=== PATIENT | female | born 1940 | race Caucasian/White ===

== ENCOUNTER 2017-02-02 21:11 | Emergency (ER) | payer MEDICARE, OTHER ==
[2017-02-02] MEDS ORDERED: BABY ASPIRIN 81 MG CHEW PO ONE (21:26)
[2017-02-02] MEDS ORDERED: Nitrostat 0.4 MG (ED) SL ONE ×2 (21:26→21:37)
[2017-02-02] MEDS ORDERED: Sodium Chloride 0.9% 1000 ML 1,000 ML IV SCH (21:30)
--- NOTE | 2017-02-02 21:33 | ERPHSYRPT ---
- History of Present Illness Time Seen by Provider: 02/02/17 21:18 Historian: patient Exam Limitations: no limitations Physician History: SINCE NOON TODAY PT HAS HAD NON-RADIATING MID ANTERIOR CHEST PRESSURE/TIGHTNESS WHICH WORSENED ABOUT 3 HOURS AGO WITH SHORTNESS OF AIR, DIAPHORESIS AND IMPENDING FAINT FOR 5 MINUTES. PT HAS ALSO HAD AN INTERMITTENT FRONTAL HEADACHE TODAY. PT DENIES NAUSEA, VOMITING, RASH. Aspirin Treatment Today: 81 mg x 4, provided by ED Allergies/Adverse Reactions: cefotetan [From Cefotan] Allergy (Verified 02/02/17 22:39) Home Medications: Aspirin 81 gm Chew [Baby Aspirin 81 mg Chew] 81 mg PO DAILY 02/02/17 [ History] Glyburide/Metformin HCl [Glucovance 5-500 mg Tablet] 1 each PO TID 02/02/17 [ History] Metoprolol Succinate 50 mg [Toprol Xl 50 MG] 50 mg PO HS 02/02/17 [History ] - Review of Systems Respiratory: Dyspnea Cardiac: Other (CHEST PRESSURE/TIGHTNESS TODAY) Abdominal/Gastrointestinal: No Nausea, No Vomiting Neurological: Headache, Other (IMPENDING FAINT) Endocrine: Excessive Sweating All Other Systems: Reviewed and Negative - Physical Exam General Appearance: alert Eye Exam: PERRL/EOMI Ears, Nose, Throat Exam: TMs normal, pharynx normal, moist mucous membranes Neck Exam: normal inspection Respiratory Exam: lungs clear Cardiovascular Exam: normal heart sounds Gastrointestinal/Abdomen Exam: soft, normal bowel sounds Back Exam: normal range of motion Extremity Exam: normal inspection, No pedal edema Neurologic Exam: alert, cooperative Skin Exam: warm, dry - Course Nursing assessment & vital signs reviewed: Yes EKG Interpreted by Me: RATE (88), Sinus Rhythm, NORMAL AXIS, NORMAL INTERVALS, Other (IRBBB) - Radiology Exams Chest X-ray Interpretation: Interpreted by me, No Pneumonia - CT Exams Abdomen/Pelvis CT Interpretation: Tele-radiologist Report (NO ACUTE FINDINGS) Ordered Tests: Active Orders 24 hr Category Date Time Status Improvement Lead STAT Care 02/02/17 21:26 Active EKG-ER Only STAT Care 02/02/17 21:26 Active EKG-ER Only STAT Care 02/02/17 23:57 Active IV Insertion STAT Care 02/02/17 21:26 Active Oxygen-ED Only NASAL CANNULA 2 lpm Care 02/02/17 21:26 Active Pulse Oximetry (ED) STAT Care 02/02/17 21:26 Active ABDOMEN AND PELVIS W/0 CONTRAS [CT] Stat Exams 02/02/17 22:19 Taken CHEST 1 VIEW (PORTABLE) Stat Exams 02/02/17 21:27 Taken AMYLASE Stat Lab 02/02/17 21:33 Completed BMP Stat Lab 02/02/17 23:58 Completed CBC W DIFF Stat Lab 02/02/17 21:33 Completed CMP Stat Lab 02/02/17 21:33 Completed LIPASE Stat Lab 02/02/17 21:33 Completed MAG [MAGNESIUM] Stat Lab 02/03/17 00:15 Completed MAGNESIUM Stat Lab 02/02/17 21:33 Completed NT PRO BNP Stat Lab 02/02/17 21:33 Completed PROTIME WITH INR Stat Lab 02/02/17 21:33 Completed PTT Stat Lab 02/02/17 21:33 Completed TROPONIN Q3H Lab 02/02/17 21:33 Completed TROPONIN Q3H Lab 02/03/17 00:15 Completed TROPONIN Q3H Lab 02/03/17 03:30 Ordered TROPONIN Q3H Lab 02/03/17 06:30 Ordered TROPONIN Q3H Lab 02/03/17 09:30 Ordered UA Stat Lab 02/02/17 21:26 Ordered Medication Summary Generic Name Dose Route Start Last Admin Trade Name Freq PRN Reason Stop Dose Admin Sodium Chloride 1,000 mls @ 100 mls/hr 02/02/17 21:30 02/02/17 21:40 Sodium Chloride 0.9% 1000 Ml IV 03/04/17 21:29 100 mls/hr .Q10H OPAL Administration Discontinued Medications Generic Name Dose Route Start Last Admin Trade Name Freq PRN Reason Stop Dose Admin Aspirin 324 mg 02/02/17 21:26 02/02/17 21:39 Baby Aspirin 81 Mg Chew PO 02/02/17 21:27 324 mg STAT ONE Administration Aspirin Confirm 02/02/17 21:37 Baby Aspirin 81 Mg Chew Administered 02/02/17 21:38 Dose 324 mg .ROUTE .STK-MED ONE Magnesium Sulfate/Dextrose 100 mls @ 200 mls/hr 02/02/17 22:18 02/02/17 22:25 Magnesium 1 Gm / 100 Ml D5w IV 02/02/17 22:47 200 mls/hr STAT ONE Administration Magnesium Sulfate/Dextrose Confirm 02/02/17 22:23 Magnesium 1 Gm / 100 Ml D5w Administered 02/02/17 22:24 Dose 100 mls @ ud IV .STK-MED ONE Nitroglycerin 0.4 mg 02/02/17 21:26 02/02/17 21:41 Nitrostat 0.4 Mg (Ed) SL 02/02/17 21:27 0.4 mg STAT ONE Administration Nitroglycerin Confirm 02/02/17 21:37 Nitrostat 0.4 Mg (Ed) Administered 02/02/17 21:38 Dose 0.4 mg SL .STK-MED ONE Lab/Rad Data: Laboratory Result Diagrams 02/02/17 21:33 02/03/17 00:15 Laboratory Results 02/03/17 02/03/17 02/03/17 Range/Units 00:15 00:15 00:15 WBC (4.0-10.5) K/mm3 RBC (4.1-5.4) M/mm3 Hgb (12.0-16.0) gm/dl Hct (35-47) % MCV (78-100) fl MCH (26-32) pg MCHC (32-36) g/dl RDW (11.5-14.0) % Plt Count (150-450) K/mm3 MPV (6-9.5) fl Gran % (36.0-66.0) % Lymphocytes % (24.0-44.0) % Monocytes % (0.0-12.0) % Eosinophils % (0.00-5.0) % Basophils % (0.0-0.4) % Basophils # (0-0.4) INR (0.8-3.0) PTT (25.3-37.0) SECONDS Sodium 140 (136-145) mEq/L Potassium 4.2 (3.5-5.1) mEq/L Chloride 104 (98-107) mEq/L Carbon Dioxide 25.5 (21-32) mEq/L Anion Gap 15.0 (5-15) MEQ/L BUN 18 (9-20) mg/dL Creatinine 1.40 H (0.55-1.30) mg/dl Estimated GFR 39 ML/MIN Glucose 201 H (70-110) MG/DL Calcium 8.2 L (8.5-10.1) mg/dL Magnesium 1.9 (1.8-2.4) mg/dL Total Bilirubin (0.2-1.0) mg/dL AST (15-37) U/L ALT (12-78) U/L Alkaline Phosphatase (46-116) U/L Troponin I < 0.017 (0.000-0.056) ng/ml NT-Pro-B Natriuret Pep (0-125) pg/ml Serum Total Protein (6.4-8.2) gm/dL Albumin (3.4-5.0) g/dL Amylase (25-115) U/L Lipase (73-393) U/L 02/02/17 02/02/17 02/02/17 Range/Units 21:33 21:33 21:33 WBC (4.0-10.5) K/mm3 RBC (4.1-5.4) M/mm3 Hgb (12.0-16.0) gm/dl Hct (35-47) % MCV (78-100) fl MCH (26-32) pg MCHC (32-36) g/dl RDW (11.5-14.0) % Plt Count (150-450) K/mm3 MPV (6-9.5) fl Gran % (36.0-66.0) % Lymphocytes % (24.0-44.0) % Monocytes % (0.0-12.0) % Eosinophils % (0.00-5.0) % Basophils % (0.0-0.4) % Basophils # (0-0.4) INR 0.98 (0.8-3.0) PTT 30.7 (25.3-37.0) SECONDS Sodium 140 (136-145) mEq/L Potassium 4.3 (3.5-5.1) mEq/L Chloride 102 (98-107) mEq/L Carbon Dioxide 24.4 (21-32) mEq/L Anion Gap 17.6 H (5-15) MEQ/L BUN 16 (9-20) mg/dL Creatinine 1.44 H (0.55-1.30) mg/dl Estimated GFR 38 ML/MIN Glucose 232 H (70-110) MG/DL Calcium 8.2 L (8.5-10.1) mg/dL Magnesium 1.4 L (1.8-2.4) mg/dL Total Bilirubin 0.3 (0.2-1.0) mg/dL AST 15 (15-37) U/L ALT 24 (12-78) U/L Alkaline Phosphatase 103 (46-116) U/L Troponin I < 0.017 (0.000-0.056) ng/ml NT-Pro-B Natriuret Pep 504 H (0-125) pg/ml Serum Total Protein 7.6 (6.4-8.2) gm/dL Albumin 3.7 (3.4-5.0) g/dL Amylase 87 (25-115) U/L Lipase 874 H (73-393) U/L 02/02/17 Range/Units 21:33 WBC 5.3 (4.0-10.5) K/mm3 RBC 4.49 (4.1-5.4) M/mm3 Hgb 11.8 L (12.0-16.0) gm/dl Hct 37.1 (35-47) % MCV 82.6 (78-100) fl MCH 26.2 (26-32) pg MCHC 31.8 L (32-36) g/dl RDW 15.2 H (11.5-14.0) % Plt Count 251 (150-450) K/mm3 MPV 9.6 H (6-9.5) fl Gran % 70.4 H (36.0-66.0) % Lymphocytes % 20.7 L (24.0-44.0) % Monocytes % 7.0 (0.0-12.0) % Eosinophils % 1.1 (0.00-5.0) % Basophils % 0.8 (0.0-0.4) % Basophils # 0.04 (0-0.4) INR (0.8-3.0) PTT (25.3-37.0) SECONDS Sodium (136-145) mEq/L Potassium (3.5-5.1) mEq/L Chloride (98-107) mEq/L Carbon Dioxide (21-32) mEq/L Anion Gap (5-15) MEQ/L BUN (9-20) mg/dL Creatinine (0.55-1.30) mg/dl Estimated GFR ML/MIN Glucose (70-110) MG/DL Calcium (8.5-10.1) mg/dL Magnesium (1.8-2.4) mg/dL Total Bilirubin (0.2-1.0) mg/dL AST (15-37) U/L ALT (12-78) U/L Alkaline Phosphatase (46-116) U/L Troponin I (0.000-0.056) ng/ml NT-Pro-B Natriuret Pep (0-125) pg/ml Serum Total Protein (6.4-8.2) gm/dL Albumin (3.4-5.0) g/dL Amylase (25-115) U/L Lipase (73-393) U/L - Departure Time of Disposition: 00:59 Departure Disposition: Home Clinical Impression: CHEST PRESSURE, HYPOMAGNESEMIA - CORRECTED IN ER, ELEVATED LIPASE Condition: Fair Critical Care Time: No Referrals: MADISON RATLIFF [Primary Care Provider] - Instructions: Chest Pain Additional Instructions: FOLLOW UP WITH PRIVATE DOCTOR LATER TODAY.
[2017-02-02 21:36] LABS: BASOPHIL % 0.8 % (0.0-0.4); Eosinophil % 1.1 % (0.00-5.0); Granulocytes % 70.4 % (36.0-66.0); Lymphocytes % 20.7 % (24.0-44.0); Mean Cell Volume 82.6 fl (78-100); Mean Platelet Volume 9.6 fl (6-9.5); Platelet Count 251 K/mm3 (150-450); Red Blood Count 4.49 M/mm3 (4.1-5.4); Red Cell Distribution Width 15.2 % (11.5-14.0); White Blood Count 5.3 K/mm3 (4.0-10.5)
[2017-02-02 21:37] LABS: Mean Corpuscular Hemoglobin 26.2 pg (26-32)
[2017-02-02] MEDS ORDERED: Sodium Chloride 0.9% 1000 ML 1,000 ML ONE (21:37)
[2017-02-02] MEDS ORDERED: BABY ASPIRIN 81 MG CHEW ONE (21:37)
[2017-02-02 21:53] LABS: INR 0.98 (0.8-3.0)
[2017-02-02 21:56] LABS: PTT 30.7 SECONDS (25.3-37.0)
[2017-02-02 22:08] LABS: ALBUMIN 3.7 g/dL (3.4-5.0); ANION GAP 17.6 MEQ/L (5-15); BILIRUBIN,TOTAL 0.3 mg/dL (0.2-1.0); Carbon Dioxide 24.4 mEq/L (21-32); MAGNESIUM 1.4 mg/dL (1.8-2.4); Potassium 4.3 mEq/L (3.5-5.1); Total Protein 7.6 gm/dL (6.4-8.2)
[2017-02-02] MEDS ORDERED: Magnesium 1 Gm / 100 Ml D5W*** 100 ML IV ONE ×2 (22:18→22:23)
[2017-02-03 00:41] LABS: Carbon Dioxide 25.5 mEq/L (21-32); Potassium 4.2 mEq/L (3.5-5.1)
[2017-02-03 00:50] VITALS: BP 168/70; PULSE 73; O2SAT 94
--- NOTE | 2017-02-03 09:35 | XRAY ---
Indication: Chest pressure. Comparison: None Portable apical lordotic chest demonstrates scattered calcific granulomas. Remaining heart and lungs normal. Bony thorax intact with mild degenerative changes. Impression: Nonacute chest with chronic features.
--- NOTE | 2017-02-03 09:41 | XRAY ---
Indication: Elevated lipase. Multiple contiguous axial images obtained through the abdomen and pelvis without contrast as ordered. Comparison: August 26, 2009. Lung bases again demonstrates bibasilar atelectasis/scarring and a few calcified granulomas. No consolidation or effusion. Heart is not enlarged. Again small hiatal hernia. Noncontrasted stomach and bowel loops appear nonobstructed with now mild diffuse scattered colonic fecal debris. There remains mild descending and sigmoid colonic diverticulosis. Normal appendix. There is been interval cholecystectomy. No free fluid/air. Spleen is enlarged today measuring 13.3 cm in greatest axial dimension. Stable uterine hypodensity probable fibroid. Remaining liver, pancreas, spleen, adrenal glands, kidneys, ureters, and bladder appear unremarkable for noncontrast exam. Minimal aortoiliac calcifications without AAA. Osseous structures intact with minimal multilevel spinal degenerative changes. Impression: 1. Stable small hiatal hernia and uterine fibroid. 2. Incidental splenomegaly and mild fecal stasis without obstruction. 3. No acute intra-abdominal/pelvic abnormalities on this noncontrast exam. Comment: Preliminary interpretation was made by [facility]. No critical discrepancy. CT DI 21.85
== END 2017-02-03 01:10 | disposition home or self-care (01) ==
LOC: ED 21:11
DX: R07.89 Other chest pain (principal); E83.42 Hypomagnesemia; R74.8 Abnormal levels of other serum enzymes; R06.02 Shortness of breath; R51 Headache; Z79.84 Long term (current) use of oral hypoglycemic drugs; Z79.899 Other long term (current) drug therapy
CPT/HCPCS: 36000; 36415; 71010; 74176; 80048; 80053; 82150; 83690; 83735; 83880; 84484; 85025; 85610; 85730; 93005; 93041; 96360; 96361; 99285; J3475; A9270-GY

== ENCOUNTER 2018-03-30 05:57 | Day surgery (SDC) | payer MEDICARE, OTHER ==
[2018-03-30] MEDS ORDERED: DIPRIVAN 200 MG/20 ML IV ONE (05:58)
[2018-03-30] MEDS ORDERED: Lactated Ringers 1,000 ML IV SCH (06:00)
[2018-03-30] MEDS ORDERED: Lactated Ringers 1,000 ML IV ONE ×2 (06:07→07:38)
--- NOTE | 2018-03-30 08:38 | OP ---
SURGERY DATE/TIME: 03/30/2018 0700 PREOPERATIVE DIAGNOSIS: History of colon cancer. POSTOPERATIVE DIAGNOSIS: Sessile polyps in the transverse and descending colon and sigmoid diverticulosis. PROCEDURE: Colonoscopy with polypectomy and tattooing of the colon. SURGEON: Dr. Ye. ANESTHESIA: Medications given by anesthesia department. HISTORY: The patient is a 77 year-old white female with history of colon cancer status post resection over ten years ago. Previous colonoscopies also have revealed colon polyps. The patient represents again at this point for re-evaluation. She was reappraised of the risks of the procedure including the risk of perforation, phlebitis, untoward reaction to medication, bleeding and missed lesions. The patient verbalized her understanding and desired to have the procedure performed. DESCRIPTION OF PROCEDURE: The patient was given the medications by the anesthesia department. She had continuous pulse oximetry, ECG monitoring, intermittent blood pressure monitoring and tidal CO2 monitoring during the examination. She was placed in the left lateral decubitus position. A digital rectal examination was performed and revealed normal anal sphincter tone and no masses. The flexible Olympus pediatric colonoscope was used to intubate the rectum. A view of the colon was developed sequentially to the cecum. Upon insertion and withdrawal was noted sessile polyp measuring approximately 3 x 2 cm in size this was removed using piecemeal removal with hot polypectomy snare and retrieved for pathologic evaluation. This was noted at approximately the mid transverse colon. There was also noted a second sessile polyp at what appeared to be the splenic flexure in the descending colon this was biopsied using cold biopsy technique and tattooed for further investigation in the future of the same area in case the patient needs to have colon resection performed again. There was also noted to be sigmoid diverticulosis at the anastomosis junction from the previous colon resection and was noted to be free of any apparent lesions. The scope was removed from the patient who tolerated the procedure well and was sent back to OP recovery in good condition. The prep was noted to be fair to good.
[2018-03-30 08:41] VITALS: BP 140/65; PULSE 62; O2SAT 97
== END 2018-03-30 08:58 | disposition home or self-care (01) ==
LOC: SDC 05:57
PROVIDERS: ATTEND Family Medicine
DX: K63.5 Polyp of colon (principal); K57.30 Diverticulosis of large intestine without perforation or abscess without bleeding; Z85.038 Personal history of other malignant neoplasm of large intestine
CPT/HCPCS: 88305; 99100; J2704

== ENCOUNTER 2021-10-25 18:08 | Inpatient (IN) | payer MEDICARE, OTHER ==
--- NOTE | 2021-10-25 18:57 | ERPHSYRPT ---
- History of Present Illness Historian: patient Exam Limitations: no limitations Patient Subjective Stated Complaint: " abdominal pain x1 week with nausea" Triage Nursing Assessment: Pt ambulated to bed 5 with steady gait noted. A & OX3, answers questions appropriately. All VSS. Skin PWD. C/o generalized abdominal pain x1 week that originated in LLQ. Was seen by PCP Cassi on Monday, placed on abx, states pain has not improved. Reports nausea, loose stool last night. Denies abdominal pain at this point in time. Physician History: 81 yo wf w LLQ abdominal pain x 1wk which has become generalized. Pt saw Dr. Ye on 10/22 who started her on Levaquin for presumed diverticulitis. Pain is sharp and rated 2/10 but has been up to 8/10. She has had nausea and diarrhea since stated the Levaquin. Pt denies melena/hematochezia/dysuia/hematuria/chest pain/cough. Timing/Duration: other (1wk) Quality: sharpness Abdominal Pain Onset Location: LLQ, generalized abdomen Pain Radiation: no radiation Severity of Pain-Max: moderate Severity of Pain-Current: mild Modifying Factors: Improves With: nothing Associated Symptoms: nausea, No back, No chest pain, No diaphoresis, No diarrhea, No fever/chills, No fatigue, No headache, No heartburn, No loss of appetite, No neck pain, No rash, No shortness of breath, No syncope, No vomiting, No weakness Previous symptoms: no prior history Allergies/Adverse Reactions: No Known Drug Allergies Allergy (Verified 10/26/21 03:20) Home Medications: Aspirin 81 gm Chew [Baby Aspirin 81 mg Chew] 81 mg PO DAILY 02/02/17 [History] Glyburide/Metformin HCl [Glucovance 5-500 mg Tablet] 2 tab PO BID 02/02/17 [History] Metoprolol Succinate 50 mg [Toprol Xl 50 MG] 50 mg PO HS 02/02/17 [History] Hx Tetanus, Diphtheria Vaccination/Date Given: Yes Hx Influenza Vaccination/Date Given: No Hx Pneumococcal Vaccination/Date Given: No Travel Risk - International Travel Have you traveled outside of the country in past 3 weeks: No - Coronavirus Screening Are you exhibiting any of the following symptoms?: No Close contact with a COVID-19 positive Pt in past 14-21 Days: No - Vaccine Status Have you recieved a Covid-19 vaccination: Yes Cytotechnologist: Moderna - Vaccination Dates Date of 2cond Vaccination (if applicable): February 2021 Comment: states first dose January 2021, 2nd dose February 2021. has not received booster. - Review of Systems Constitutional: No Symptoms Eyes: No Symptoms Ears, Nose, & Throat: No Symptoms Respiratory: No Symptoms Cardiac: No Symptoms Abdominal/Gastrointestinal: No Symptoms, Abdominal Pain, Nausea, Diarrhea Genitourinary Symptoms: No Symptoms Musculoskeletal: No Symptoms Skin: No Symptoms Neurological: No Symptoms Psychological: No Symptoms Endocrine: No Symptoms Hematologic/Lymphatic: No Symptoms Immunological/Allergic: No Symptoms - Past Medical History Pertinent Past Medical History: Yes Neurological History: No Pertinent History ENT History: No Pertinent History Cardiac History: Hypertension, Myocardial Infarction (PR) Respiratory History: No Pertinent History Endocrine Medical History: Diabetes Type II Musculoskeletal History: No Pertinent History GI Medical History: Colorectal Cancer History: No Pertinent History Psycho-Social History: No Pertinent History Female Reproductive Disorders: No Pertinent History - Past Surgical History Past Surgical History: Yes Neuro Surgical History: No Pertinent History Cardiac: Cardiac Catheterization Respiratory: No Pertinent History Gastrointestinal: Cholecystectomy, Colon Resection Genitourinary: No Pertinent History Musculoskeletal: No Pertinent History Female Surgical History: No Pertinent History - Social History Smoking Status: Never smoker Exposure to second hand smoke: No Drug Use: none Patient Lives Alone: No Significant Family History: no pertinent family hx - Female History Hx Last Menstrual Period: n/a - Nursing Vital Signs Nursing Vital Signs: Initial Vital Signs Temperature 97.1 F 10/25/21 18:31 Pulse Rate 95 H 10/25/21 18:31 Respiratory Rate 14 10/25/21 18:31 Blood Pressure 151/79 10/25/21 18:31 O2 Sat by Pulse Oximetry 98 10/25/21 18:31 Pain Scale Pain Intensity 8 - Physical Exam General Appearance: no apparent distress Eye Exam: PERRL/EOMI, eyes nml inspection Ears, Nose, Throat Exam: normal ENT inspection, TMs normal, pharynx normal, moist mucous membranes Neck Exam: normal inspection, non-tender, supple, full range of motion, No meningismus, No mass, No Brudzinski, No Kernig's Respiratory Exam: normal breath sounds, lungs clear, airway intact, No respiratory distress Cardiovascular Exam: regular rate/rhythm, normal heart sounds, No murmur Gastrointestinal/Abdomen Exam: soft, tenderness (Diffuse TTP w guarding), distention Extremity Exam: normal inspection, normal range of motion Neurologic Exam: alert, oriented x 3, cooperative, 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, normal mood/affect, nml cerebellar function, nml station & gait, sensation nml, No motor deficits, No sensory deficit Skin Exam: normal color, warm, dry Lymphatic Exam: No adenopathy SpO2 Interpretation: normal SpO2: 98 O2 Delivery: Room Air - Course Nursing assessment & vital signs reviewed: Yes - CT Exams Abdomen/Pelvis CT Interpretation: Discussed w/radiologist (SBO at [facility] ) Ordered Tests: Active Orders 24 hr Category Date Time Status EKG-ER Only STAT Care 10/25/21 18:39 Completed NPO Diet 10/25/21 21:37 Active ABDOMEN AND PELVIS W/0 CONTRAS [CT] Stat Exams 10/25/21 19:37 Taken CHEST 1 VIEW (PORTABLE) Routine Exams 10/26/21 Taken AMYLASE Stat Lab 10/25/21 19:05 Completed CBC W DIFF AM.LAB Lab 10/26/21 04:40 Completed CBC W DIFF Stat Lab 10/25/21 19:05 Completed CMP AM.LAB Lab 10/26/21 04:40 Completed CMP Stat Lab 10/25/21 19:05 Completed CULTURE,URINE Stat Lab 10/25/21 18:41 Received LIPASE Stat Lab 10/25/21 19:05 Completed Lactic Acid Stat Lab 10/25/21 19:25 Completed Manual Differential NC Routine Lab 10/26/21 04:40 Completed TROPONIN Q3H Lab 10/25/21 19:05 Completed TROPONIN Q3H Lab 10/25/21 22:00 Completed TROPONIN Q3H Lab 10/26/21 00:45 Completed TROPONIN Q3H Lab 10/26/21 04:40 Completed TROPONIN Q3H Lab 10/26/21 06:45 Ordered UA W/RFX UR CULTURE Stat Lab 10/25/21 18:41 Completed Medication Summary Generic Name Dose Route Start Last Admin Trade Name Freq PRN Reason Stop Dose Admin Hydromorphone HCl 0.5 mg 10/25/21 21:36 10/26/21 04:26 Hydromorphone 1 Mg/1ml Inj 1 Mg/Ml Syringe IV 10/30/21 21:35 0.5 mg Q4H PRN PRN Administration PAIN Sodium Chloride 1,000 mls @ 100 mls/hr 10/25/21 21:45 10/25/21 23:00 Sodium Chloride 0.9% 1000 Ml IV 11/24/21 21:44 100 mls/hr .Q10H OPAL Administration Piperacillin Sod/Tazobactam 100 mls @ 200 mls/hr 10/26/21 00:00 10/26/21 03:25 Sod 3.375 gm/ Sodium Chloride IV 10/29/21 00:00 200 mls/hr Q6HT OPAL Administration Ondansetron HCl 4 mg 10/25/21 21:36 10/26/21 03:16 Ondansetron Hcl 4 Mg/2 Ml Vial IV 11/24/21 21:35 4 mg Q6H PRN PRN Administration NAUSEA/VOMITING Pantoprazole Sodium 40 mg 10/26/21 10:00 Pantoprazole 40 Mg Vial IV 11/25/21 09:59 Q24H10 OPAL Discontinued Medications Generic Name Dose Route Start Last Admin Trade Name Freq PRN Reason Stop Dose Admin Fentanyl Citrate 50 mcg 10/25/21 21:42 10/25/21 22:59 Fentanyl Citrate 100 Mcg/2 Ml* Vial IV 10/25/21 21:43 50 mcg STAT ONE Administration Fentanyl Citrate Confirm 10/25/21 22:54 Fentanyl Citrate 100 Mcg/2 Ml* Vial Administered 10/25/21 22:55 Dose 100 mcg .ROUTE .STK-MED ONE Sodium Chloride Confirm 10/26/21 03:09 Sodium Chloride 100ml Mini-Bag Plus Administered 10/26/21 03:10 Dose 100 mls @ ud IV .STK-MED ONE Ondansetron HCl 4 mg 10/25/21 21:42 10/25/21 22:59 Ondansetron Hcl 4 Mg/2 Ml Vial IV 10/25/21 21:43 4 mg STAT ONE Administration Piperacillin Sod/Tazobactam Sod Confirm 10/26/21 03:08 Piperacillin/Tazobactam Sodium 3.375 Gm Vial Administered 10/26/21 03:09 Dose 3.375 gm IV .STK-MED ONE Lab/Rad Data: Laboratory Result Diagrams 10/25/21 19:05 10/25/21 19:05 Laboratory Results 10/26/21 10/25/21 10/25/21 Range/Units 00:45 22:30 22:00 WBC (4.0-10.5) K/mm3 RBC (4.1-5.4) M/mm3 Hgb (12.0-16.0) gm/dl Hct (35-47) % MCV (78-100) fl MCH (26-32) pg MCHC (32-36) g/dl RDW (11.5-14.0) % Plt Count (150-450) K/mm3 MPV (7.5-11.0) fl Gran % (36.0-66.0) % Eos # (Auto) (0-0.5) Absolute Lymphs (auto) (1.0-4.6) Absolute Monos (auto) (0.0-1.3) Lymphocytes % (24.0-44.0) % Monocytes % (0.0-12.0) % Eosinophils % (0.00-5.0) % Basophils % (0.0-0.4) % Absolute Granulocytes (1.4-6.9) Basophils # (0-0.4) Sodium (137-145) mmol/L Potassium (3.5-5.1) mmol/L Chloride (98-107) mmol/L Carbon Dioxide (22-30) mmol/L Anion Gap (5-15) MEQ/L BUN (7-17) mg/dL Creatinine (0.52-1.04) mg/dL Estimated GFR ML/MIN Glucose (74-106) mg/dL Lactic Acid (0.4-2.0) Calcium (8.4-10.2) mg/dL Total Bilirubin (0.2-1.3) mg/dL AST (14-36) U/L ALT (0-35) U/L Alkaline Phosphatase (38-126) U/L Troponin I < 0.012 < 0.012 (0.000-0.034) ng/mL Serum Total Protein (6.3-8.2) g/dL Albumin (3.5-5.0) g/dL Amylase (30-110) U/L Lipase (23-300) U/L Urine Color (YELLOW) Urine Appearance (CLEAR) Urine pH (5-6) Ur Specific [place] (1.005-1.025) Urine Protein (Negative) Urine Ketones (NEGATIVE) Urine Blood (0-5) Macario/ul Urine Nitrite (NEGATIVE) Urine Bilirubin (NEGATIVE) Urine Urobilinogen (0-1) mg/dL Ur Leukocyte Esterase (NEGATIVE) Urine WBC (Auto) (0-5) /HPF Urine RBC (Auto) (0-2) /HPF U Epithel Cells (Auto) (FEW) /HPF Urine Bacteria (Auto) (NEGATIVE) /HPF Urine Mucus (Auto) (NEGATIVE) /HPF Urine Culture Reflexed (NO) Urine Glucose (NEGATIVE) mg/dL Influenza Type A Ag NEGATIVE (NEGATIVE) Influenza Type B Ag NEGATIVE (NEGATIVE) RSV (PCR) NEGATIVE (Negative) SARS-CoV-2 (PCR) NEGATIVE (NEGATIVE) 10/25/21 10/25/21 10/25/21 Range/Units 19:25 19:05 19:05 WBC (4.0-10.5) K/mm3 RBC (4.1-5.4) M/mm3 Hgb (12.0-16.0) gm/dl Hct (35-47) % MCV (78-100) fl MCH (26-32) pg MCHC (32-36) g/dl RDW (11.5-14.0) % Plt Count (150-450) K/mm3 MPV (7.5-11.0) fl Gran % (36.0-66.0) % Eos # (Auto) (0-0.5) Absolute Lymphs (auto) (1.0-4.6) Absolute Monos (auto) (0.0-1.3) Lymphocytes % (24.0-44.0) % Monocytes % (0.0-12.0) % Eosinophils % (0.00-5.0) % Basophils % (0.0-0.4) % Absolute Granulocytes (1.4-6.9) Basophils # (0-0.4) Sodium 136 L (137-145) mmol/L Potassium 4.7 (3.5-5.1) mmol/L Chloride 101 (98-107) mmol/L Carbon Dioxide 26 (22-30) mmol/L Anion Gap 13.5 (5-15) MEQ/L BUN 17 (7-17) mg/dL Creatinine 1.36 H (0.52-1.04) mg/dL Estimated GFR 39.9 ML/MIN Glucose 146 H (74-106) mg/dL Lactic Acid 1.2 (0.4-2.0) Calcium 8.7 (8.4-10.2) mg/dL Total Bilirubin 0.40 (0.2-1.3) mg/dL AST 15 (14-36) U/L ALT 10 (0-35) U/L Alkaline Phosphatase 114 (38-126) U/L Troponin I < 0.012 (0.000-0.034) ng/mL Serum Total Protein 6.4 (6.3-8.2) g/dL Albumin 3.7 (3.5-5.0) g/dL Amylase 36 (30-110) U/L Lipase 25 (23-300) U/L Urine Color (YELLOW) Urine Appearance (CLEAR) Urine pH (5-6) Ur Specific [place] (1.005-1.025) Urine Protein (Negative) Urine Ketones (NEGATIVE) Urine Blood (0-5) Macario/ul Urine Nitrite (NEGATIVE) Urine Bilirubin (NEGATIVE) Urine Urobilinogen (0-1) mg/dL Ur Leukocyte Esterase (NEGATIVE) Urine WBC (Auto) (0-5) /HPF Urine RBC (Auto) (0-2) /HPF U Epithel Cells (Auto) (FEW) /HPF Urine Bacteria (Auto) (NEGATIVE) /HPF Urine Mucus (Auto) (NEGATIVE) /HPF Urine Culture Reflexed (NO) Urine Glucose (NEGATIVE) mg/dL Influenza Type A Ag (NEGATIVE) Influenza Type B Ag (NEGATIVE) RSV (PCR) (Negative) SARS-CoV-2 (PCR) (NEGATIVE) 10/25/21 10/25/21 Range/Units 19:05 18:41 WBC 6.3 (4.0-10.5) K/mm3 RBC 4.26 (4.1-5.4) M/mm3 Hgb 11.1 L (12.0-16.0) gm/dl Hct 36.4 (35-47) % MCV 85.4 (78-100) fl MCH 26.1 (26-32) pg MCHC 30.5 L (32-36) g/dl RDW 14.5 H (11.5-14.0) % Plt Count 361 (150-450) K/mm3 MPV 9.6 (7.5-11.0) fl Gran % 74.3 H (36.0-66.0) % Eos # (Auto) 0.09 (0-0.5) Absolute Lymphs (auto) 1.10 (1.0-4.6) Absolute Monos (auto) 0.41 (0.0-1.3) Lymphocytes % 17.5 L (24.0-44.0) % Monocytes % 6.5 (0.0-12.0) % Eosinophils % 1.4 (0.00-5.0) % Basophils % 0.3 (0.0-0.4) % Absolute Granulocytes 4.67 (1.4-6.9) Basophils # 0.02 (0-0.4) Sodium (137-145) mmol/L Potassium (3.5-5.1) mmol/L Chloride (98-107) mmol/L Carbon Dioxide (22-30) mmol/L Anion Gap (5-15) MEQ/L BUN (7-17) mg/dL Creatinine (0.52-1.04) mg/dL Estimated GFR ML/MIN Glucose (74-106) mg/dL Lactic Acid (0.4-2.0) Calcium (8.4-10.2) mg/dL Total Bilirubin (0.2-1.3) mg/dL AST (14-36) U/L ALT (0-35) U/L Alkaline Phosphatase (38-126) U/L Troponin I (0.000-0.034) ng/mL Serum Total Protein (6.3-8.2) g/dL Albumin (3.5-5.0) g/dL Amylase (30-110) U/L Lipase (23-300) U/L Urine Color TOREY (YELLOW) Urine Appearance TURBID (CLEAR) Urine pH 5.0 (5-6) Ur Specific [place] 1.019 (1.005-1.025) Urine Protein 100 (Negative) Urine Ketones NEGATIVE (NEGATIVE) Urine Blood NEGATIVE (0-5) Macario/ul Urine Nitrite NEGATIVE (NEGATIVE) Urine Bilirubin NEGATIVE (NEGATIVE) Urine Urobilinogen NEGATIVE (0-1) mg/dL Ur Leukocyte Esterase MODERATE (NEGATIVE) Urine WBC (Auto) >100 (0-5) /HPF Urine RBC (Auto) 6-10 (0-2) /HPF U Epithel Cells (Auto) MANY (FEW) /HPF Urine Bacteria (Auto) MODERATE (NEGATIVE) /HPF Urine Mucus (Auto) SLIGHT (NEGATIVE) /HPF Urine Culture Reflexed YES (NO) Urine Glucose NEGATIVE (NEGATIVE) mg/dL Influenza Type A Ag (NEGATIVE) Influenza Type B Ag (NEGATIVE) RSV (PCR) (Negative) SARS-CoV-2 (PCR) (NEGATIVE) - Progress Progress: improved Progress Note: 10/25/21 21:[address] Ye Wantmini NG tube and Zosyn started - Departure Clinical Impression: UTI (urinary tract infection), Small bowel obstruction Condition: Stable Critical Care Time: No
[2021-10-25 19:11] LABS: Appearance TURBID (CLEAR); Bacteria MODERATE /HPF (NEGATIVE); Bilirubin NEGATIVE (NEGATIVE); Blood NEGATIVE Ery/ul (0-5); Epithelial Cells MANY /HPF (FEW); Glucose NEGATIVE (NEGATIVE); Ketones NEGATIVE (NEGATIVE); Leukocyte Esterase MODERATE (NEGATIVE); Mucus SLIGHT /HPF (NEGATIVE); Nitrite NEGATIVE (NEGATIVE); Protein,Urine Dip 100 (Negative); Specific Gravity 1.019 (1.005-1.025); Urobilinogen NEGATIVE mg/dL (0-1); WBC >100 /HPF (0-5)
[2021-10-25 19:20] LABS: Absolute Neutrophil Ct (ANC) 4.67 (1.4-6.9); BASOPHIL % 0.3 % (0.0-0.4); Basophil (Absolute #) 0.02 (0-0.4); Eosinophil % 1.4 % (0.00-5.0); Eosinophil (Absolute #) 0.09 (0-0.5); Hematocrit 36.4 % (35-47); Hemoglobin 11.1 gm/dl (12.0-16.0); Lymphocytes % 17.5 % (24.0-44.0); Mean Cell Volume 85.4 fl (78-100); Mean Corpuscular Hemoglobin 26.1 pg (26-32); Mean Corpuscular Hgb Concent. 30.5 g/dl (32-36); Mean Platelet Volume 9.6 fl (7.5-11.0); Monocyte (Absolute #) 0.41 (0.0-1.3); Monocytes % 6.5 % (0.0-12.0); Neutrophil % 74.3 % (36.0-66.0); Platelet Count 361 K/mm3 (150-450); Red Blood Count 4.26 M/mm3 (4.1-5.4); Red Cell Distribution Width 14.5 % (11.5-14.0); White Blood Count 6.3 K/mm3 (4.0-10.5)
[2021-10-25 19:33] LABS: ALBUMIN 3.7 g/dL (3.5-5.0); ANION GAP 13.5 MEQ/L (5-15); BILIRUBIN,TOTAL 0.4 mg/dL (0.2-1.3); Calcium 8.7 mg/dL (8.4-10.2); Creatinine 1 1.36 mg/dL (0.52-1.04); EST GLOMERULAR FILTRATION RATE 39.9 ML/MIN; Potassium 4.7 mmol/L (3.5-5.1); Total Protein 6.4 g/dL (6.3-8.2)
[2021-10-25] MEDS ORDERED: Hydromorphone 1 mg/ml Injection IV PRN (21:36)
[2021-10-25] MEDS ORDERED: Zofran 4 MG/2 ML VIAL IV PRN (21:36)
[2021-10-25] MEDS ORDERED: SUBLIMAZE 100 MCG/2 ML IV ONE (21:42)
[2021-10-25] MEDS ORDERED: Zofran 4 MG/2 ML VIAL IV ONE (21:42)
[2021-10-25] MEDS ORDERED: Sodium Chloride 0.9% 1000 ML 1,000 ML IV SCH (21:45)
[2021-10-25] MEDS ORDERED: SUBLIMAZE 100 MCG/2 ML ONE (22:54)
[2021-10-25 23:17] LABS: INFLUENZA A NEGATIVE (NEGATIVE); INFLUENZA B NEGATIVE (NEGATIVE); RESPIRATORY SYNCTIAL VIRUS NEGATIVE (Negative); SARS-CoV-2 Xpert Express NEGATIVE (NEGATIVE)
[2021-10-26] MEDS ORDERED: Zosyn 3.375 GM Vial IV ONE (03:08)
[2021-10-26] MEDS ORDERED: Sodium Chloride 100ML MINI-BAG PLUS 100 ML IV ONE (03:09)
[2021-10-26] MEDS: Zosyn 3.375 GM Vial 3.375 GM in Sodium Chloride 100ML MINI-BAG PLUS 100 ML IV SCH ×4 (03:25→22:30)
[2021-10-26 05:15] LABS: Hematocrit 34.9 % (35-47); Hemoglobin 10.6 gm/dl (12.0-16.0); Mean Corpuscular Hemoglobin 26.1 pg (26-32); Mean Corpuscular Hgb Concent. 30.4 g/dl (32-36); Mean Platelet Volume 9.4 fl (7.5-11.0); Platelet Count 350 K/mm3 (150-450); Red Blood Count 4.06 M/mm3 (4.1-5.4); Red Cell Distribution Width 14.6 % (11.5-14.0); White Blood Count 6.4 K/mm3 (4.0-10.5)
[2021-10-26 05:38] LABS: ALBUMIN 3.5 g/dL (3.5-5.0); ANION GAP 12.4 MEQ/L (5-15); BILIRUBIN,TOTAL 0.4 mg/dL (0.2-1.3); Calcium 8.1 mg/dL (8.4-10.2); Creatinine 1 1.61 mg/dL (0.52-1.04); EST GLOMERULAR FILTRATION RATE 32.8 ML/MIN; Potassium 4.3 mmol/L (3.5-5.1); Total Protein 6.4 g/dL (6.3-8.2)
[2021-10-26] MEDS ORDERED: DILAUDID 1 MG/1ML PCA IV PRN (07:28)
[2021-10-26] MEDS: Zofran 4 MG/2 ML VIAL IV PRN ×3 (08:34→18:47)
--- NOTE | 2021-10-26 08:57 | XRAY ---
Indication: Abdomen pain, nausea, and vomiting. Multiple contiguous axial images obtained through the abdomen and pelvis without contrast. Comparison: February 02, 2017. Lung bases again demonstrates bibasilar atelectasis/scarring and a tiny calcified/noncalcified granulomas. No infiltrate or effusion. Heart is not enlarged. Stomach and small bowel loops are now mildly fluid distended to the level of distal jejunum with fluid leveling. Jejunum is distended up to 4 cm in diameter with ileal bowel loops decompressed. Findings favor distal small bowel obstruction. Tiny perisplenic/left colic free fluid presumed reactive. No walled off fluid collection or free air. Scattered descending and sigmoid diverticulosis. Again 13.3 cm splenomegaly, small uterine fundal fibroid, and cholecystectomy. Remaining liver, pancreas, spleen, adrenal glands, kidneys, ureters, and bladder are unremarkable for noncontrast exam. Worsening mild/moderate scattered aortoiliac calcifications without AAA. Osseous structures intact again with minimal degenerative changes throughout the spine. Stable small fatty left periumbilical ventral hernias. Impression: 1. New CT findings as detailed favoring distal small bowel obstruction with tiny free fluid. 2. Again incidental colonic diverticulosis, splenomegaly, uterine fibroid, fatty ventral hernias, chronic bony findings, and old granulomatous disease.
--- NOTE | 2021-10-26 09:39 | XRAY ---
Indication: NG tube placement. Comparison: February 02, 2017. Portable chest demonstrates new NG tube tip in stomach. Lungs demonstrates minimal bibasilar atelectasis/scarring. Remaining heart and lungs unremarkable. Bony thorax intact again with mild osteopenia and degenerative changes.
[2021-10-26] MEDS ORDERED: Dextrose 5% -0.45 NaCl 1000 ML 1,000 ML IV ONE (10:45)
[2021-10-26] MEDS: Dextrose 5% -0.45 NaCl 1000 ML 1,000 ML IV SCH ×2 (11:06→21:56)
[2021-10-26] MEDS: PROTONIX 40 MG IV IV SCH (11:07)
[2021-10-26] MEDS: Phenergan 25 MG INJ*** 12.5 MG in Sodium Chloride 0.9% 100 ML BAG 100 ML IV PRN ×2 (15:04→21:53)
[2021-10-26] MEDS: TORAdol 30 mg Injection IV PRN (22:25)
[2021-10-27 05:52] LABS: Hematocrit 31.2 % (35-47); Hemoglobin 9.4 gm/dl (12.0-16.0); Mean Cell Volume 86.7 fl (78-100); Mean Corpuscular Hemoglobin 26.1 pg (26-32); Mean Corpuscular Hgb Concent. 30.1 g/dl (32-36); Mean Platelet Volume 9.4 fl (7.5-11.0); Platelet Count 294 K/mm3 (150-450); Red Cell Distribution Width 14.7 % (11.5-14.0); White Blood Count 5.3 K/mm3 (4.0-10.5)
[2021-10-27 06:13] LABS: ALBUMIN 3.1 g/dL (3.5-5.0); ANION GAP 14.3 MEQ/L (5-15); BILIRUBIN,TOTAL 0.3 mg/dL (0.2-1.3); Calcium 7.6 mg/dL (8.4-10.2); Creatinine 1 2.75 mg/dL (0.52-1.04); EST GLOMERULAR FILTRATION RATE 17.7 ML/MIN; Potassium 3.8 mmol/L (3.5-5.1); Total Protein 5.8 g/dL (6.3-8.2)
[2021-10-27] MEDS: Zosyn 3.375 GM Vial 3.375 GM in Sodium Chloride 100ML MINI-BAG PLUS 100 ML IV SCH (06:28)
[2021-10-27] MEDS: Dextrose 5% -0.45 NaCl 1000 ML 1,000 ML IV SCH ×2 (10:00→21:24)
--- NOTE | 2021-10-27 10:03 | CONS ---
CONSULT DATE: 10/27/2021 REASON FOR CONSULT: Bowel obstruction. HISTORY: A 81-year-old white female familiar to me. I did a colon resection 20 years ago for cancer. She is cancer free that we know of. Twelve years ago she had a cholecystectomy I believe by the [facility] with a visiting surgeon from [place]. She was doing well until a week ago. She has had colonoscopy. She had a colonoscopy about four to five years ago by Dr. Ye so she is certainly basically about due for colonoscopy. She was not having any GI symptoms. A week ago, she started getting some fullness a little progressive in nature. She had some left lower quadrant pain and then that moved to a periumbilical pain. It makes you wonder if she has not had a little bit of diverticulitis or diverticular attack. She actually was placed on Augmentin but it did not do her any good. She subsequently has this more mid abdominal pain that seems more like a small bowel obstruction-type pain. Her CT scan is suggesting small bowel obstruction. PHYSICAL EXAMINATION: On physical examination, she is moderately distended. She is mildly tender. She does not have peritoneal sign. She is certainly not toxic in any way. Her nasogastric tube is foul. IMPRESSION: I think there is a reasonable chance that this is a true small bowel obstruction and it may eventually come to surgical intervention. It is most likely secondary to adhesions. There is always a slight risk of recurrent cancer although it is 20 years out. We will get a small bowel follow through on 10/27/2021, and to see where that takes us.
[2021-10-27] MEDS: TORAdol 30 mg Injection IV PRN (10:10)
[2021-10-27 10:48] LABS: AMYLASE 34 U/L (30-110); LIPASE 48 U/L (23-300)
[2021-10-27] MEDS: Phenergan 25 MG INJ*** 12.5 MG in Sodium Chloride 0.9% 100 ML BAG 100 ML IV PRN ×3 (11:05→19:53)
[2021-10-27] MEDS: Zofran 4 MG/2 ML VIAL IV PRN ×2 (11:44→18:34)
[2021-10-27] MEDS: PROTONIX 40 MG IV IV SCH (11:45)
[2021-10-27] MEDS: Zosyn 2.25 GM 2.25 GM in Sodium Chloride 100ML MINI-BAG PLUS 100 ML IV SCH ×2 (14:32→21:19)
--- NOTE | 2021-10-27 14:33 | XRAY ---
Indication: Small bowel obstruction. Nausea and vomiting. 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 NG tube tip in stomach. No free air. Approximately 720 cc of dilute Gastrografin was injected through indwelling NG tube. Multiple overhead radiographs obtained. Technologist reports patient vomited multiple times during the exam. First overhead image demonstrates Gastrografin contrast predominantly in the stomach with immediate gastric emptying. Multiple overhead radiographs demonstrates slow antegrade opacification of the small bowel loops via dilution, not peristalsis. Small bowel loops are mildly and uniformly distended throughout without focal transition point/obstruction identified. Appearance is essentially unchanged on the 2, 3, and 4 hour delayed radiographs. No contrast in the colon. Given vomiting during the exam, additional image of the lower chest was obtained and is negative for Gastrografin aspiration. Impression: Abnormal slow small bowel follow-through exam demonstrating uniformly distended small bowel loops, ileus versus distal small bowel obstruction.
--- NOTE | 2021-10-27 17:36 | PCM.NOTE ---
Date and Time: 10/27/21 886 Subjective Assessment: ng clamped for SBFT. had an emesis during clamp. abd distension, nausea. now back on suction. no real abd pain on suction. no nausea currently. no flatus no bm. no passage of contrast 4 hrs on sbft. Objective Exam Comments: 10/27/21 17:34 nad nonlaboerd resps rrr mild dist, soft, essentially nttp. no r/g. no perihp edema OBJECTIVE DATA Vital Signs: Vital Signs - 24 hr Temp Pulse Resp BP Pulse Ox 10/27/21 16:00 88 20 134/57 96 10/27/21 12:00 98.5 F 94 H 22 137/72 94 L 10/27/21 08:00 98.3 F 71 18 128/60 95 10/27/21 04:00 97.1 F 86 16 115/58 94 L 10/27/21 00:00 98.2 F 88 16 118/58 92 L 10/26/21 20:00 97.3 F 90 16 128/56 93 L Pain Assessment - Last Documented Pain Intensity 0 Pain Scale Used 0-10 Pain Scale Intake and Output: Intake & Output 10/25/21 10/26/21 10/27/21 10/28/21 11:59 11:59 11:59 11:59 Intake Total 397 1411 0 Output Total 450 1400 1800 Balance -53 11 -1800 Weight 78.9 kg Lab Results: Lab Results-Last 24 Hours 10/27/21 10/27/21 10/27/21 Range/Units 04:50 05:52 05:52 WBC 5.3 (4.0-10.5) K/mm3 RBC 3.60 L (4.1-5.4) M/mm3 Hgb 9.4 L (12.0-16.0) gm/dl Hct 31.2 L (35-47) % MCV 86.7 (78-100) fl MCH 26.1 (26-32) pg MCHC 30.1 L (32-36) g/dl RDW 14.7 H (11.5-14.0) % Plt Count 294 (150-450) K/mm3 MPV 9.4 (7.5-11.0) fl Sodium 135 L (137-145) mmol/L Potassium 3.8 (3.5-5.1) mmol/L Chloride 103 (98-107) mmol/L Carbon Dioxide 22 (22-30) mmol/L Anion Gap 14.3 (5-15) MEQ/L BUN 24 H (7-17) mg/dL Creatinine 2.75 H (0.52-1.04) mg/dL Estimated GFR 17.7 ML/MIN Glucose 186 H (74-106) mg/dL POC Glucometer (74 to 106) mg/dL Calcium 7.6 L (8.4-10.2) mg/dL Total Bilirubin 0.30 (0.2-1.3) mg/dL AST 21 (14-36) U/L ALT 12 (0-35) U/L Alkaline Phosphatase 115 (38-126) U/L Serum Total Protein 5.8 L (6.3-8.2) g/dL Albumin 3.1 L (3.5-5.0) g/dL Amylase (30-110) U/L Lipase (23-300) U/L Procalcitonin 0.313 H (0.030-0.080) ng/mL 10/27/21 10/27/21 10/27/21 Range/Units 06:00 12:07 15:59 WBC (4.0-10.5) K/mm3 RBC (4.1-5.4) M/mm3 Hgb (12.0-16.0) gm/dl Hct (35-47) % MCV (78-100) fl MCH (26-32) pg MCHC (32-36) g/dl RDW (11.5-14.0) % Plt Count (150-450) K/mm3 MPV (7.5-11.0) fl Sodium (137-145) mmol/L Potassium (3.5-5.1) mmol/L Chloride (98-107) mmol/L Carbon Dioxide (22-30) mmol/L Anion Gap (5-15) MEQ/L BUN (7-17) mg/dL Creatinine (0.52-1.04) mg/dL Estimated GFR ML/MIN Glucose (74-106) mg/dL POC Glucometer 179 H 222 H (74 to 106) mg/dL Calcium (8.4-10.2) mg/dL Total Bilirubin (0.2-1.3) mg/dL AST (14-36) U/L ALT (0-35) U/L Alkaline Phosphatase (38-126) U/L Serum Total Protein (6.3-8.2) g/dL Albumin (3.5-5.0) g/dL Amylase 34 (30-110) U/L Lipase 48 (23-300) U/L Procalcitonin (0.030-0.080) ng/mL Radiology Exams: Radiology Procedures Category Date Time Status ABDOMEN AND PELVIS W/0 CONTRAS [CT] Stat Exams 10/25/21 19:37 Completed CHEST 1 VIEW (PORTABLE) Routine Exams 10/26/21 Completed SMALL BOWEL SERIES Routine Exams 10/27/21 00:00 Completed Multi-Disciplinary Progress Notes: Multi-Disciplinary Progress Notes 10/27/21 11:50 Case Management Note by Lora Madrigal NO CHANGE IN DC PLANS AT THIS TIME Initialized on 10/27/21 11:50 - END OF NOTE Assessment/Plan (1) Small bowel obstruction Current Visit: Yes Status: Acute Assessment & Plan: 81yo female SBO. no progression of contrast on sbft after 4 hrs. benign exam. -will reserve time for ex lap release SBO tomorrow at noon. if she opens up will cancel but feel this is unlikely at this point. Code(s): K56.609 - UNSP INTESTNL OBST, UNSP TO PARTIAL VERSUS COMPLETE OBST
[2021-10-27] MEDS ORDERED: Sodium Chloride 0.9% 100 ML BAG 100 ML ONE (19:56)
[2021-10-28] MEDS: Phenergan 25 MG INJ*** 12.5 MG in Sodium Chloride 0.9% 100 ML BAG 100 ML IV PRN ×3 (00:20→09:10)
[2021-10-28] MEDS: Dextrose 5% -0.45 NaCl 1000 ML 1,000 ML IV SCH (05:20)
[2021-10-28] MEDS: Zosyn 2.25 GM 2.25 GM in Sodium Chloride 100ML MINI-BAG PLUS 100 ML IV SCH ×2 (05:21→16:59)
[2021-10-28 09:38] LABS: Hematocrit 33.2 % (35-47); Hemoglobin 9.8 gm/dl (12.0-16.0); Mean Cell Volume 87.1 fl (78-100); Mean Corpuscular Hemoglobin 25.7 pg (26-32); Mean Corpuscular Hgb Concent. 29.5 g/dl (32-36); Mean Platelet Volume 9.7 fl (7.5-11.0); Platelet Count 302 K/mm3 (150-450); Red Blood Count 3.81 M/mm3 (4.1-5.4); Red Cell Distribution Width 14.8 % (11.5-14.0); White Blood Count 4.7 K/mm3 (4.0-10.5)
[2021-10-28] MEDS: PROTONIX 40 MG IV IV SCH (10:49)
[2021-10-28 11:26] LABS: ALBUMIN 3.4 g/dL (3.5-5.0); ANION GAP 13.8 MEQ/L (5-15); BILIRUBIN,TOTAL 0.4 mg/dL (0.2-1.3); Calcium 8.1 mg/dL (8.4-10.2); Creatinine 1 3.57 mg/dL (0.52-1.04); EST GLOMERULAR FILTRATION RATE 13.1 ML/MIN; Potassium 3.7 mmol/L (3.5-5.1)
[2021-10-28] MEDS ORDERED: Lactated Ringers 1,000 ML IV SCH (11:30)
[2021-10-28] MEDS ORDERED: MEFOXIN 2 GM PREMIX** 2 GM/50 ML ML IV SCH (12:00)
[2021-10-28] MEDS ORDERED: SUBLIMAZE 100 MCG/2 ML ONE (12:02)
[2021-10-28] MEDS ORDERED: DIPRIVAN 200 MG/20 ML IV ONE ×2 (12:02→15:54)
[2021-10-28] MEDS ORDERED: TORAdol 30 mg Injection ONE (12:02)
[2021-10-28] MEDS ORDERED: Zofran 4 MG/2 ML VIAL ONE (12:02)
[2021-10-28] MEDS ORDERED: BRIDION 200MG/2ML IV ONE (12:02)
[2021-10-28] MEDS ORDERED: Versed 2 MG/2 ML Injection ONE (12:02)
[2021-10-28] MEDS ORDERED: Zemuron 100 MG/10 ML ONE (12:02)
[2021-10-28] MEDS ORDERED: Decadron 4 MG INJ ONE (12:02)
[2021-10-28] MEDS ORDERED: Marcaine 0.5%/Epinephrine 10 ML ONE (12:08)
[2021-10-28] MEDS ORDERED: PHENYLEPHRINE HCL ONE (12:37)
[2021-10-28] MEDS ORDERED: XYLOCAINE 2%/Epi 1:200000 20ML VIAL MPF ONE (13:07)
[2021-10-28] MEDS ORDERED: SUFENTANIL IV SCH (14:00)
[2021-10-28] MEDS ORDERED: ROPIVACAINE IV SCH (14:00)
[2021-10-28] MEDS ORDERED: [UNRECOGNIZED DRUG - OTHER] IV SCH (14:00)
--- NOTE | 2021-10-28 15:04 | OP ---
SURGERY DATE/TIME: 10/28/2021 1214 PREOPERATIVE DIAGNOSIS: Small bowel obstruction. POSTOPERATIVE DIAGNOSES: 1) Small bowel obstruction secondary small bowel diverticulitis and bezoar. 2) Ventral incisional hernia. PROCEDURES: 1) Exploratory laparotomy. 2) Small bowel resection with reanastomosis. 3) Primary repair of ventral incisional hernia. 4) Enterolysis of less than 30 minutes. SURGEON: Fahad Gan M.D. ANESTHESIA: General. ESTIMATED BLOOD LOSS: 200. PATIENT CONDITION: Stable. COMPLICATIONS: None. SPECIMENS: 1) Small bowel resection with portion of omentum. 2) Hernia sac. HISTORY: The patient is a 81-year-old female with history of a laparotomy that presents with obstructive symptoms. CT scan showed small bowel obstruction. Small bowel follow through showed no progression of contrast. She does have a benign exam but is distended. Discussion is had with the patient. Risk of infection, bleeding, injury to nearby structure, hernia, medical complication and she elected to proceed with surgery. FINDINGS: Small bowel obstruction secondary to small bowel diverticulitis with bezoar that looks like it had come from the small bowel, diverticulitis that was a clear transition point. About a 50 cm section of small bowel is resected including many diverticula and swcy-st-ooif anastomosis. DESCRIPTION OF PROCEDURE: The patient was brought to operating room. General anesthesia induced. Routinely positioned, prepped and draped. Time out is performed. A midline laparotomy is carried down into the abdomen. There are adhesions from prior surgery. Omentum is stuck to the inferior abdominal wall. Lysis of the adhesions less than 30 minutes performed. The omentum is freed up. The small bowel is lysed. When the small bowel is being run, there are adhesions from the small bowel mesentery to other loops of small bowel and omentum which with gentle finger fracture did dissect free and there is inflammation at the mesenteric side of the small bowel where there are small bowel diverticula with diverticulitis. There is proximal dilatation and distal decompression. There is a golf ball sized bezoar that is firm and that is broken up easily that appeared to come from a proximal small bowel diverticula that was inflamed. There is about a 50 cm section of small bowel with many small bowel diverticula. She has over 200 cm of remaining small bowel that is healthy just distally. It was elected to perform resection of the effected portion. Proximal resection point selected and distal resection point selected. The mesentery is taken with the energy. A [id number] hands tied peristaltic functional end-to-end anastomosis is performed. The specimen is passed as "Small bowel resection". The mesentery closed with 3-0 PDS running suture. The anastomosis is satisfactory, healthy, hemostatic, patent. The entire bowel is run in the stomach and is in normal position. The liver is normal. There are adhesions to upper abdomen over the gallbladder of the omentum which are not taken down. The entire small bowel remainder is normal. The appendix is normal. The colon is normal. The transverse colon is kind of covered by omentum which is not dissected free. In the pelvis there is a fibroid uterus. The midline incision has multiple Taiwanese cheese defects with some incarcerated omentum and preperitoneal fat. The fascia is resected back to healthy fascia. There is no undo tension on the fascia. The fascia was closed with running 0 PDS suture primarily. The hernia sac instantly involved the umbilical stock and the umbilicus was resected. The skin is re-approximated with vanda, quarter-inch Elsa are placed between the vanda. Sterile dressing applied. All counts are correct x2. The patient tolerated the procedure well. Plans for extubation.
[2021-10-28 15:20] LABS: Appearance TURBID (CLEAR); Bacteria FEW /HPF (NEGATIVE); Bilirubin NEGATIVE (NEGATIVE); Blood SMALL Ery/ul (0-5); Glucose 50 mg/dL (NEGATIVE); Ketones NEGATIVE (NEGATIVE); Leukocyte Esterase NEGATIVE (NEGATIVE); Mucus SLIGHT /HPF (NEGATIVE); Nitrite NEGATIVE (NEGATIVE); Protein,Urine Dip 30 (Negative); Specific Gravity 1.019 (1.005-1.025); Urobilinogen NEGATIVE mg/dL (0-1)
[2021-10-28] MEDS: MORPHINE SULFATE 2 MG INJ IV PRN (16:24)
[2021-10-28] MEDS ORDERED: CLARITIN 10 MG PO PRN (16:30)
[2021-10-28] MEDS ORDERED: Zofran 4 MG/2 ML VIAL IV PRN ×2 (16:30→16:45)
[2021-10-28] MEDS ORDERED: Nubain 10 MG/ML IV PRN (16:30)
[2021-10-28] MEDS ORDERED: PERCOCET TABLET 5/325MG PO PRN (16:30)
[2021-10-28] MEDS ORDERED: Sodium Chloride 0.9% 10 ML FLUSH Syringe IJ PRN (16:30)
[2021-10-28] MEDS ORDERED: Narcan 0.4 MG/ML IV PRN (16:30)
[2021-10-28] MEDS: Dextrose 5%-Lr IV Solution 1000 ML 1,000 ML IV SCH (17:41)
[2021-10-28] MEDS ORDERED: ENOXAPARIN SODIUM SQ SCH (22:00)
[2021-10-28] MEDS: Sodium Chloride 0.9% 10 ML FLUSH Syringe IJ SCH (22:01)
[2021-10-29] MEDS: Dextrose 5%-Lr IV Solution 1000 ML 1,000 ML IV SCH (01:50)
[2021-10-29 06:19] LABS: Hematocrit 31.5 % (35-47); Hemoglobin 9.6 gm/dl (12.0-16.0); Mean Cell Volume 85.8 fl (78-100); Mean Corpuscular Hemoglobin 26.2 pg (26-32); Mean Corpuscular Hgb Concent. 30.5 g/dl (32-36); Mean Platelet Volume 9.5 fl (7.5-11.0); Platelet Count 306 K/mm3 (150-450); Red Blood Count 3.67 M/mm3 (4.1-5.4); Red Cell Distribution Width 14.5 % (11.5-14.0); White Blood Count 6.8 K/mm3 (4.0-10.5)
[2021-10-29 06:43] LABS: ANION GAP 11.8 MEQ/L (5-15); Calcium 7.5 mg/dL (8.4-10.2); Creatinine 1 2.82 mg/dL (0.52-1.04); EST GLOMERULAR FILTRATION RATE 17.2 ML/MIN; Potassium 3.9 mmol/L (3.5-5.1)
[2021-10-29] MEDS: MORPHINE SULFATE 2 MG INJ IV PRN (06:45)
[2021-10-29] MEDS ORDERED: TYLENOL 325 MG PO PRN (07:44)
[2021-10-29] MEDS ORDERED: FEVERALL 650 MG RC PRN (07:45)
[2021-10-29] MEDS ORDERED: NORCO 5/325 MG PO PRN (08:11)
[2021-10-29] MEDS ORDERED: MORPHINE SULFATE 4 MG INJ IV ONE (08:43)
[2021-10-29] MEDS ORDERED: Sodium Chloride 0.9% 500 ML 500 ML IV ONE (08:44)
[2021-10-29] MEDS: PROTONIX 40 MG IV IV SCH (08:57)
[2021-10-29] MEDS: ENOXAPARIN SODIUM SQ SCH (08:57)
[2021-10-29] MEDS: MORPHINE 30 MG/30 ML PCA IV PRN ×2 (10:13→20:00)
--- NOTE | 2021-10-29 11:07 | PCM.CONS ---
History of Present Illness - Reason for Consult Chief Complaint: BRIGITTE Reason for Consult: BRIGITTE Requesting Provider: ELVIN MOSQUEDA Consulting Provider: VINCENT RODRIGUEZ History of Present Illness: is a 81 year old female with hx of hypertension and diabetes who presented to the ER with complaints of abd pain, NV for 1 week. She was also started on abx for previously noted UTI which she thought was causing her some diarrhea. Pt was started on IVF. Labs on admission noted SCr 1.3. Pt denies any hx of CKD. CT abd and pelvis suggested SBO. Gen surgery was consulted. Pt had NT tube placed with significant output. Prior to exploratory lap, SCr had increased to 3.5. Nephrology was consulted due to BRIGITTE. - Review of Systems Constitutional: Fatigue Eyes: No Symptoms Ears, Nose, & Throat: No Symptoms Respiratory: No Symptoms Cardiac: No Symptoms Abdominal/Gastrointestinal: Abdominal Pain, Nausea Genitourinary Symptoms: No Symptoms Musculoskeletal: No Symptoms Skin: No Symptoms Neurological: No Symptoms Psychological: No Symptoms Medications & Allergies Home Medications: Home Medication List Aspirin 81 gm Chew [Baby Aspirin 81 mg Chew] 81 mg PO DAILY 02/02/17 [History Confirmed 10/25/21] Glyburide/Metformin HCl [Glucovance 5-500 mg Tablet] 2 tab PO BID 02/02/17 [Hi story Confirmed 10/26/21] Metoprolol Succinate 50 mg [Toprol Xl 50 MG] 50 mg PO HS 02/02/17 [History Confirmed 10/25/21] Allergies/Adverse Reactions: Allergies Allergy/AdvReac Type Severity Reaction Status Date / Time hydromorphone [From Dilaudid] AdvReac Severe Nausea and Verified 10/26/21 13:53 Vomiting - Past Medical History Past Medical History: Yes Neurological History: No Pertinent History ENT History: No Pertinent History Cardiac History: Hypertension, Myocardial Infarction ([place]) Respiratory History: No Pertinent History Endocrine Medical History: Diabetes Type II Musculoskelatal History: No Pertinent History GI Medical History: Colorectal Cancer History: No Pertinent History Pyscho-Social History: No Pertinent History Reproductive Disorders: No Pertinent History - Female History Hx Last Menstrual Period: n/a Are you now?: No (N) - Past Surgical History Past Surgical History: Yes Neuro Surgical History: No Pertinent History Cardiac History: Cardiac Catheterization Respiratory Surgery: No Pertinent History GI Surgical History: Cholecystectomy, Colon Resection Genitourinary Surgical Hx: No Pertinent History Musculskeletal Surgical Hx: No Pertinent History Female Surgical History: No Pertinent History - Social History Smoking Status: Never smoker Exposure to second hand smoke: No Alcohol: None Drug Use: none Significant Family History: no pertinent family hx - Physical Exam Vital Signs: Vital Signs - 24 hr Temp Pulse Resp BP Pulse Ox 10/29/21 08:00 95.2 F 94 H 21 146/67 95 10/29/21 04:00 97.9 F 96 H 12 120/59 94 L 10/29/21 00:00 97.7 F 101 H 12 123/58 96 10/28/21 20:00 98.0 F 59 L 20 131/62 95 10/28/21 19:50 94 L 10/28/21 17:30 67 134/81 93 L 10/28/21 16:30 60 161/95 96 10/28/21 16:00 68 151/68 100 10/28/21 15:43 91 L 10/28/21 15:30 93 H 138/63 91 L 10/28/21 11:37 97.8 F 90 21 152/67 96 General Appearance: no apparent distress, alert, obese Neurologic Exam: alert, oriented x 3, cooperative, normal mood/affect Eye Exam: PERRL/EOMI Ears, Nose, Throat Exam: other (NG tube in place) Neck Exam: normal inspection Respiratory Exam: normal breath sounds, lungs clear Cardiovascular Exam: regular rate/rhythm, normal heart sounds Gastrointestinal/Abdomen Exam: tenderness Extremity Exam: normal inspection, other (no edema) Skin Exam: normal color Results - Labs Lab/Micro Results: Lab Results-Last 24 Hours 10/28/21 10/28/21 10/28/21 Range/Units 09:10 09:10 11:44 WBC (4.0-10.5) K/mm3 RBC (4.1-5.4) M/mm3 Hgb (12.0-16.0) gm/dl Hct (35-47) % MCV (78-100) fl MCH (26-32) pg MCHC (32-36) g/dl RDW (11.5-14.0) % Plt Count (150-450) K/mm3 MPV (7.5-11.0) fl Sodium 138 (137-145) mmol/L Potassium 3.7 (3.5-5.1) mmol/L Chloride 105 (98-107) mmol/L Carbon Dioxide 23 (22-30) mmol/L Anion Gap 13.8 (5-15) MEQ/L BUN 25 H (7-17) mg/dL Creatinine 3.57 H (0.52-1.04) mg/dL Estimated GFR 13.1 ML/MIN Glucose 203 H (74-106) mg/dL POC Glucometer 197 H (74 to 106) mg/dL Calcium 8.1 L (8.4-10.2) mg/dL Total Bilirubin 0.40 (0.2-1.3) mg/dL AST 36 (14-36) U/L ALT 23 (0-35) U/L Alkaline Phosphatase 175 H (38-126) U/L Serum Total Protein 6.0 L (6.3-8.2) g/dL Albumin 3.4 L (3.5-5.0) g/dL Procalcitonin 0.394 H (0.030-0.080) ng/mL Urine Color (YELLOW) Urine Appearance (CLEAR) Urine pH (5-6) Ur Specific [place] (1.005-1.025) Urine Protein (Negative) Urine Ketones (NEGATIVE) Urine Blood (0-5) Macario/ul Urine Nitrite (NEGATIVE) Urine Bilirubin (NEGATIVE) Urine Urobilinogen (0-1) mg/dL Ur Leukocyte Esterase (NEGATIVE) Urine WBC (Auto) (0-5) /HPF Urine RBC (Auto) (0-2) /HPF U Epithel Cells (Auto) (FEW) /HPF Urine Bacteria (Auto) (NEGATIVE) /HPF Urine Mucus (Auto) (NEGATIVE) /HPF Urine Glucose (NEGATIVE) mg/dL 10/28/21 10/28/21 10/29/21 Range/Units 12:40 21:55 05:50 WBC (4.0-10.5) K/mm3 RBC (4.1-5.4) M/mm3 Hgb (12.0-16.0) gm/dl Hct (35-47) % MCV (78-100) fl MCH (26-32) pg MCHC (32-36) g/dl RDW (11.5-14.0) % Plt Count (150-450) K/mm3 MPV (7.5-11.0) fl Sodium (137-145) mmol/L Potassium (3.5-5.1) mmol/L Chloride (98-107) mmol/L Carbon Dioxide (22-30) mmol/L Anion Gap (5-15) MEQ/L BUN (7-17) mg/dL Creatinine (0.52-1.04) mg/dL Estimated GFR ML/MIN Glucose (74-106) mg/dL POC Glucometer 283 H (74 to 106) mg/dL Calcium (8.4-10.2) mg/dL Total Bilirubin (0.2-1.3) mg/dL AST (14-36) U/L ALT (0-35) U/L Alkaline Phosphatase (38-126) U/L Serum Total Protein (6.3-8.2) g/dL Albumin (3.5-5.0) g/dL Procalcitonin 1.070 H (0.030-0.080) ng/mL Urine Color YELLOW (YELLOW) Urine Appearance TURBID (CLEAR) Urine pH 5.0 (5-6) Ur Specific [place] 1.019 (1.005-1.025) Urine Protein 30 (Negative) Urine Ketones NEGATIVE (NEGATIVE) Urine Blood SMALL (0-5) Macario/ul Urine Nitrite NEGATIVE (NEGATIVE) Urine Bilirubin NEGATIVE (NEGATIVE) Urine Urobilinogen NEGATIVE (0-1) mg/dL Ur Leukocyte Esterase NEGATIVE (NEGATIVE) Urine WBC (Auto) 11-15 (0-5) /HPF Urine RBC (Auto) 3-5 (0-2) /HPF U Epithel Cells (Auto) NONE (FEW) /HPF Urine Bacteria (Auto) FEW (NEGATIVE) /HPF Urine Mucus (Auto) SLIGHT (NEGATIVE) /HPF Urine Glucose 50 (NEGATIVE) mg/dL 10/29/21 10/29/21 10/29/21 Range/Units 05:50 05:50 07:09 WBC 6.8 (4.0-10.5) K/mm3 RBC 3.67 L (4.1-5.4) M/mm3 Hgb 9.6 L (12.0-16.0) gm/dl Hct 31.5 L (35-47) % MCV 85.8 (78-100) fl MCH 26.2 (26-32) pg MCHC 30.5 L (32-36) g/dl RDW 14.5 H (11.5-14.0) % Plt Count 306 (150-450) K/mm3 MPV 9.5 (7.5-11.0) fl Sodium 138 (137-145) mmol/L Potassium 3.9 (3.5-5.1) mmol/L Chloride 106 (98-107) mmol/L Carbon Dioxide 24 (22-30) mmol/L Anion Gap 11.8 (5-15) MEQ/L BUN 23 H (7-17) mg/dL Creatinine 2.82 H (0.52-1.04) mg/dL Estimated GFR 17.2 ML/MIN Glucose 231 H (74-106) mg/dL POC Glucometer 220 H (74 to 106) mg/dL Calcium 7.5 L (8.4-10.2) mg/dL Total Bilirubin (0.2-1.3) mg/dL AST (14-36) U/L ALT (0-35) U/L Alkaline Phosphatase (38-126) U/L Serum Total Protein (6.3-8.2) g/dL Albumin (3.5-5.0) g/dL Procalcitonin (0.030-0.080) ng/mL Urine Color (YELLOW) Urine Appearance (CLEAR) Urine pH (5-6) Ur Specific [place] (1.005-1.025) Urine Protein (Negative) Urine Ketones (NEGATIVE) Urine Blood (0-5) Macario/ul Urine Nitrite (NEGATIVE) Urine Bilirubin (NEGATIVE) Urine Urobilinogen (0-1) mg/dL Ur Leukocyte Esterase (NEGATIVE) Urine WBC (Auto) (0-5) /HPF Urine RBC (Auto) (0-2) /HPF U Epithel Cells (Auto) (FEW) /HPF Urine Bacteria (Auto) (NEGATIVE) /HPF Urine Mucus (Auto) (NEGATIVE) /HPF Urine Glucose (NEGATIVE) mg/dL Microbiology 10/28/21 12:40 Urine Culture - Preliminary Urine, Catheterized NO GROWTH TO DATE 10/25/21 18:41 Urine Culture - Final Clean Catch Midstream NO GROWTH Accuchecks Date 10/29/21 Date 10/28/21 Time 07:10 Time 07:50 - Other Procedures and Tests Respiratory Therapy 10/28/21 15:43 Oxygen NASAL CANNULA 2 lpm 10/29/21 08:44 Flutter Therapy UD Incentive Spirometry TID Assessment/Plan (1) BRIGITTE (acute kidney injury) Current Visit: Yes Status: Acute Assessment & Plan: BRIGITTE due to ATN, from persistent fluid losses with NG output with use of Toradol Toradol has been stopped Pt getting 500cc NS bolus then cont NS @ 150cc/hr Renal function has improved since admission UO reviewed, expect continued improvement in renal function meds have been reviewed monitor IO and renal function closely Code(s): N17.9 - ACUTE KIDNEY FAILURE, UNSPECIFIED (2) UTI (urinary tract infection) Current Visit: Yes Status: Acute Assessment & Plan: UTI UA on admission consistent with UTI urine cultures noted no growth monitor Code(s): N39.0 - URINARY TRACT INFECTION, SITE NOT SPECIFIED (3) Small bowel obstruction Current Visit: Yes Status: Acute Assessment & Plan: SBO SBO s/p small bowel resection NG tube clamped Pt remains NPO on INSTALLATION SPECIALIST pump for pain management per Gen Surgery Code(s): K56.609 - UNSP INTESTNL OBST, UNSP TO PARTIAL VERSUS COMPLETE OBST (4) Hypertension Current Visit: Yes Status: Acute Assessment & Plan: Hypertension well controlled at this time Pt NPO unable to take metoprolol monitor, assess the need for IV BP meds Code(s): I10 - ESSENTIAL (PRIMARY) HYPERTENSION (5) Diabetes type 2, controlled Current Visit: Yes Status: Acute Assessment & Plan: Type 2 diabetes monitor accuchecks, pt NPO cont SSI Code(s): E11.9 - TYPE 2 DIABETES MELLITUS WITHOUT COMPLICATIONS
[2021-10-29 14:56] LABS: Eosinophil 4 % (0.00-3.0); Lymphocytes 22 % (24-44); Monocyte 2 % (0.0-12.0); Neutrophils 72 % (36.0-66.0); Total Cells Counted 100
[2021-10-29 14:57] LABS: Platelet Estimate NORMAL (NORMAL)
[2021-10-29 15:06] LABS: Absolute Neutrophil Ct (ANC) 3.81 (1.4-6.9)
[2021-10-29 16:28] LABS: Lymphocytes 19 % (24-44); Monocyte 3 % (0.0-12.0); Neutrophils 78 % (36.0-66.0); Platelet Estimate NORMAL (NORMAL); Total Cells Counted 100
[2021-10-29] MEDS: Sodium Chloride 0.9% 1000 ML 1,000 ML IV SCH (20:22)
[2021-10-29] MEDS: Sodium Chloride 0.9% 10 ML FLUSH Syringe IJ SCH ×2 (23:58→23:59)
[2021-10-30] MEDS: MORPHINE 30 MG/30 ML PCA IV PRN ×3 (05:07→17:17)
[2021-10-30 06:07] LABS: Absolute Neutrophil Ct (ANC) 4.14 (1.4-6.9); BASOPHIL % 0.4 % (0.0-0.4); Basophil (Absolute #) 0.02 (0-0.4); Eosinophil % 3.9 % (0.00-5.0); Eosinophil (Absolute #) 0.22 (0-0.5); Hemoglobin 8.8 gm/dl (12.0-16.0); Lymphocyte (Absolute #) 0.84 (1.0-4.6); Mean Cell Volume 88.2 fl (78-100); Mean Corpuscular Hemoglobin 25.9 pg (26-32); Mean Corpuscular Hgb Concent. 29.3 g/dl (32-36); Mean Platelet Volume 9.3 fl (7.5-11.0); Monocyte (Absolute #) 0.38 (0.0-1.3); Monocytes % 6.8 % (0.0-12.0); Neutrophil % 73.9 % (36.0-66.0); Platelet Count 267 K/mm3 (150-450); Red Cell Distribution Width 14.9 % (11.5-14.0); White Blood Count 5.6 K/mm3 (4.0-10.5)
[2021-10-30] MEDS: Sodium Chloride 0.9% 1000 ML 1,000 ML IV SCH ×3 (06:39→23:05)
[2021-10-30 06:43] LABS: ALBUMIN 2.8 g/dL (3.5-5.0); ANION GAP 9.6 MEQ/L (5-15); BILIRUBIN,TOTAL 0.2 mg/dL (0.2-1.3); Calcium 6.9 mg/dL (8.4-10.2); Creatinine 1 1.93 mg/dL (0.52-1.04); EST GLOMERULAR FILTRATION RATE 26.6 ML/MIN; Potassium 3.7 mmol/L (3.5-5.1); Total Protein 5.3 g/dL (6.3-8.2)
[2021-10-30] MEDS: Sodium Chloride 0.9% 10 ML FLUSH Syringe IJ SCH ×2 (06:46→21:00)
[2021-10-30] MEDS: PROTONIX 40 MG IV IV SCH (10:58)
[2021-10-30] MEDS: ENOXAPARIN SODIUM SQ SCH (10:58)
[2021-10-31 05:06] LABS: Absolute Neutrophil Ct (ANC) 3.27 (1.4-6.9); BASOPHIL % 0.4 % (0.0-0.4); Basophil (Absolute #) 0.02 (0-0.4); Eosinophil % 3.7 % (0.00-5.0); Eosinophil (Absolute #) 0.17 (0-0.5); Hemoglobin 8.4 gm/dl (12.0-16.0); Lymphocyte (Absolute #) 0.91 (1.0-4.6); Lymphocytes % 19.6 % (24.0-44.0); Mean Corpuscular Hemoglobin 25.8 pg (26-32); Monocyte (Absolute #) 0.27 (0.0-1.3); Monocytes % 5.8 % (0.0-12.0); Neutrophil % 70.5 % (36.0-66.0); Platelet Count 230 K/mm3 (150-450); Red Blood Count 3.26 M/mm3 (4.1-5.4); Red Cell Distribution Width 14.9 % (11.5-14.0); White Blood Count 4.6 K/mm3 (4.0-10.5)
[2021-10-31] MEDS: Sodium Chloride 0.9% 1000 ML 1,000 ML IV SCH ×3 (06:52→23:10)
[2021-10-31 07:06] LABS: ALBUMIN 2.7 g/dL (3.5-5.0); ANION GAP 8.8 MEQ/L (5-15); BILIRUBIN,TOTAL 0.2 mg/dL (0.2-1.3); Calcium 6.7 mg/dL (8.4-10.2); Creatinine 1 1.48 mg/dL (0.52-1.04); EST GLOMERULAR FILTRATION RATE 36.2 ML/MIN; PROCALCITONIN 0.541 ng/mL (0.030-0.080); Potassium 3.9 mmol/L (3.5-5.1); Total Protein 5.2 g/dL (6.3-8.2)
[2021-10-31] MEDS ORDERED: MSIR 15 MG PO PRN (09:18)
[2021-10-31] MEDS: ENOXAPARIN SODIUM SQ SCH (11:17)
[2021-10-31] MEDS: PROTONIX 40 MG IV IV SCH (11:17)
[2021-10-31] MEDS: MSIR 15 MG PO PRN ×2 (13:10→19:48)
[2021-10-31] MEDS: Sodium Chloride 0.9% 10 ML FLUSH Syringe IJ SCH ×2 (14:16→14:17)
[2021-11-01 05:29] LABS: Hematocrit 29.2 % (35-47); Hemoglobin 8.6 gm/dl (12.0-16.0); Mean Cell Volume 87.7 fl (78-100); Mean Corpuscular Hemoglobin 25.8 pg (26-32); Mean Corpuscular Hgb Concent. 29.5 g/dl (32-36); Mean Platelet Volume 9.5 fl (7.5-11.0); Platelet Count 245 K/mm3 (150-450); Red Blood Count 3.33 M/mm3 (4.1-5.4); Red Cell Distribution Width 14.7 % (11.5-14.0); White Blood Count 4.9 K/mm3 (4.0-10.5)
[2021-11-01 06:32] LABS: ANISOCYTOSIS 1+; Lymphocytes 18 % (24-44); Neutrophils 82 % (36.0-66.0); Platelet Estimate NORMAL (NORMAL); Poikilocytosis 1+; Polychromasia 1+; Total Cells Counted 100
[2021-11-01 07:01] LABS: ALBUMIN 2.6 g/dL (3.5-5.0); ANION GAP 8.7 MEQ/L (5-15); BILIRUBIN,TOTAL 0.2 mg/dL (0.2-1.3); Calcium 6.4 mg/dL (8.4-10.2); Creatinine 1 1.14 mg/dL (0.52-1.04); EST GLOMERULAR FILTRATION RATE 48.9 ML/MIN; PROCALCITONIN 0.309 ng/mL (0.030-0.080); Potassium 3.1 mmol/L (3.5-5.1); Total Protein 5.2 g/dL (6.3-8.2)
[2021-11-01] MEDS: Sodium Chloride 0.9% 1000 ML 1,000 ML IV SCH (07:13)
[2021-11-01] MEDS: PROTONIX 40 MG IV IV SCH (08:25)
[2021-11-01] MEDS: Sodium Chloride 0.9% 10 ML FLUSH Syringe IJ SCH ×3 (08:33→15:26)
[2021-11-01] MEDS: ENOXAPARIN SODIUM SQ SCH (08:40)
[2021-11-01] MEDS ORDERED: Lasix 20 MG/2 ML IV ONE (12:00)
[2021-11-02] MEDS ORDERED: Lasix 20 MG/2 ML IV ONE (10:00)
[2021-11-02] MEDS: PROTONIX 40 MG IV IV SCH (10:12)
[2021-11-02] MEDS: ENOXAPARIN SODIUM SQ SCH (10:12)
[2021-11-02 12:04] VITALS: BP 118/68; PULSE 81; O2SAT 95
--- NOTE | 2021-11-02 13:42 | DS ---
DISCHARGE DIAGNOSIS: SMALL BOWEL OBSTRUCTION. HOSPITAL COURSE: The patient is a 81-year-old white female who presented to the office a couple of days prior to admission with complaints of left lower quadrant abdominal pain. She did have a history of diverticulosis and was felt to have diverticulitis. She was treated with antibiotic of Levaquin but presented to the emergency room as she was not improving. At that time a CT scan revealed what appeared to be a possible small bowel obstruction. The patient was placed in the hospital and given IV fluids and gut rest. She had a NG tube which initially produced a fair amount but began slowing down. The patient was felt the need to have surgical procedure to improve the small bowel obstruction which she underwent and since that time she has been improving slowly. She was able to produce some bowel gas and therefore NG tube was discontinued and placed on clear liquids. She did fairly well with this and we advanced her to full liquids. The patient continued to improve and was placed on a regular diet by 11/02/2021, at which time the patient was felt to be ready for discharge. The patient's sodium was 138, potassium was slightly low at 3.1. Her BUN 9, creatinine 1.14 on 11/01/2021. She had a procalcitonin level that was down to 0.309. Her white count is 4.9, hemoglobin 8.6 and PLT count 245,000. The patient at this point was felt to be ready for discharge home. She did have some problems during this stay with what was felt to be ATN problem with increasing creatinine due to low blood pressure at one point, this did eventually improve through her stay after increase in IV fluids to the point that she was a 1.14 on 11/01/2021 on her creatinine. The patient was discharged home on her usual home medications at this point to follow up in the office within a week and also follow up with surgery for further evaluation, management and removal of vanda.
== END 2021-11-02 15:56 | disposition home or self-care (01) | DRG 330 ==
LOC: ED 18:08 → MED SURG 10-26 02:00 → OBSVTOIN 10-26 07:28
PROVIDERS: ADMIT Family Medicine; ATTEND Family Medicine
PROC: 0DT80ZZ Resection of Small Intestine, Open Approach (ICD-10-PCS; principal; 2021-10-28)
PROC: 0WQF0ZZ Repair Abdominal Wall, Open Approach (ICD-10-PCS; 2021-10-28)
PROC: 0DN80ZZ Release Small Intestine, Open Approach (ICD-10-PCS; 2021-10-28)
DX: K56.51 Intestinal adhesions [bands], with partial obstruction (principal); N17.9 Acute kidney failure, unspecified; N39.0 Urinary tract infection, site not specified; K57.12 Diverticulitis of small intestine without perforation or abscess without bleeding; K43.2 Incisional hernia without obstruction or gangrene; I10 Essential (primary) hypertension; E11.9 Type 2 diabetes mellitus without complications; I25.2 Old myocardial infarction; Z79.899 Other long term (current) drug therapy; Z20.828 Contact with and (suspected) exposure to other viral communicable diseases
CPT/HCPCS: 0241U; 36000; 36415; 44005; 44120; 49560; 64488; 71045; 74176; 74250; 76937; 80048; 80053; 81001; 82150; 82947; 83605; 83690; 84145; 84484; 85025; 85027; 87086; 93005; 94667; 94668; 94760; 94762; 96374; 96375; 99285; 62324; 76942; 88302; 88307; 99100; 99291; J0694; J1100; J1170; J1650; J1885; J1940; J2250; J2270; J2370; J2405; J2543; J2550; J2704; J2795; J3010; L0625; A9270-GY

== ENCOUNTER 2024-01-26 05:55 | Day surgery (SDC) | payer MEDICARE, OTHER ==
[2024-01-26] MEDS: Lactated Ringers 1,000 ML IV SCH (06:25)
[2024-01-26 06:39] VITALS: RESP 16
[2024-01-26] MEDS ORDERED: Amidate 20 MG/10 ML IV ONE (08:08)
[2024-01-26] MEDS ORDERED: DIPRIVAN 200 MG/20 ML IV ONE (08:09)
[2024-01-26 08:39] LABS: Hemoglobin 10.3 g/dL (12.0-16.0); Mean Cell Volume 86.1 fL (78-100); Mean Corpuscular Hemoglobin 26.1 pg (26-32); Mean Corpuscular Hgb Concent. 30.3 g/dL (32-36); Mean Platelet Volume 9.2 fL (7.5-11.0); Platelet Count 196 x10^3/uL (150-450); Red Blood Count 3.95 x10^6/uL (4.1-5.4); Red Cell Distribution Width 21.8 % (11.5-14.0); White Blood Count 4.7 x10^3/uL (4.0-10.5)
[2024-01-26 08:52] VITALS: TEMP 98.2
[2024-01-26 08:54] LABS: ALBUMIN 3.2 g/dL (3.5-5.0); ANION GAP 9.9 MEQ/L (5-15); BILIRUBIN,TOTAL 0.3 mg/dL (0.2-1.3); Calcium 7.4 mg/dL (8.4-10.2); Creatinine 1 1.25 mg/dL (0.52-1.04); EST GLOMERULAR FILTRATION RATE 43.3 ML/MIN; Potassium 3.2 mmol/L (3.5-5.1); Total Protein 5.8 g/dL (6.3-8.2)
[2024-01-26 09:20] VITALS: BP 149/66; PULSE 95; O2SAT 94
--- NOTE | 2024-01-26 09:33 | OP ---
SURGERY DATE/TIME: 01/26/2024 0756 PREOPERATIVE DIAGNOSIS: Anemia, history of colon polyps. POSTOPERATIVE DIAGNOSES: 1) Moderate gastritis. 2) Multiple benign appearing gastric polyps. 3) Multiple colon polyps. 4) Circumferential mass in the proximal sigmoid colon versus transverse colon. PROCEDURES: 1) Esophagogastroduodenoscopy. 2) Colonoscopy with hot snare polypectomy. SURGEON: Dr. Ye. ANESTHESIA: Medications were given by the anesthesia department. HISTORY: The patient is an 83-year-old white female with history of colon polyps. She also has a significant coronary history as well. She has been seeing the oncologist recently for evaluation of her anemia and they suggested that we do endoscopic evaluation. She was appraised of the risks of the procedure including the risk of perforation, phlebitis, untoward reaction to medication, bleeding and missed lesions. The patient verbalized her understanding and desired to have the procedure performed. DESCRIPTION OF PROCEDURE: The patient was given the medications by the anesthesia department. She had continuous pulse oximetry, ECG monitoring and intermittent blood pressure monitoring during the examination. She was placed in the left lateral decubitus position. A bite block was placed and the flexible Olympus gastroscope was used to intubate the oropharynx. A view of the larynx was obtained and was normal. The scope was easily introduced in the esophagus which appeared to be essentially normal throughout its length. The stomach was entered where several small gastric polyps were noted with benign appearance. The scope was passed along the greater curvature of the stomach to the antrum. The pylorus was encountered and intubated. The duodenum inspected and found to be mildly erythematous. No erosions or ulcerations however were noted. The scope is withdrawn towards the stomach. Again, a retroflex view was obtained of the lesser curvature, fundus and cardia regions of the stomach and these appeared to be essentially normal. The scope was then removed from the patient. Next, a digital rectal examination was performed and revealed normal anal sphincter tone and no masses. The flexible Olympus pediatric colonoscope was used to intubate the rectum. A view of the colon was developed to the sigmoid colon. Multiple small polyps were noted. One was removed using hot polypectomy snare. As we reached the proximal sigmoid versus transverse colon, there was noted to be a very firm circumferential mass that was biopsied multiple times using cold biopsy forceps. We were unable to pass beyond this area due to narrowing in the colon. The scope was removed from the patient who tolerated the procedure well. She was sent to OP recovery. She will receive CBC, CMP, CEA levels and we are setting up a CT scan of the abdomen and pelvis after which the patient will be able to return home. We will see her back in the office in a week to go over the reports with her and decide where we take the evaluation from here.
--- NOTE | 2024-01-26 12:21 | XRAY ---
Indication: Colon mass on same day colonoscopy. Multiple contiguous axial images obtained through the abdomen and pelvis prior to and following 80 cc Isovue 370 contrast as ordered. Comparison: October 25, 2021 Lung bases again demonstrates minimal bilateral subsegmental atelectasis/scarring and tiny calcified/noncalcified granulomas. No infiltrate or effusion. Heart not enlarged. Noncontrasted images demonstrates stable tiny splenic calcified granuloma and and uterine fundal fibroid with calcification. No new visceral calcifications/calculi. Noncontrasted stomach and bowel loops appear nonobstructed. New intact midabdomen small bowel anastomosis. Proximal descending colon demonstrates new 5 cm segment of circumferential wall thickening with intraluminal narrowing unchanged on all 3 phases concerning for annular constricting malignancy. Again mild scattered descending diverticulosis without diverticulitis. Again incidental 13.8 cm splenomegaly and cholecystectomy. No free fluid/air. Postcontrast images demonstrates normal visceral enhancement and renal excretion. Uterus demonstrates endometrial fluid up to 2 cm in thickness. Remaining liver, pancreas, spleen, adrenal glands, kidneys, ureters, and bladder are unremarkable. Again mild/moderate scattered aortoiliac calcifications. No AAA or pathologic retroperitoneal lymphadenopathy. Osseous structures intact again with minimal ejected changes throughout the spine. Impression: 1. New proximal descending colonic circumferential wall thickening with intraluminal narrowing as detailed concerning for malignancy. 2. Again uterine fibroid. Abnormal endometrial cavity fluid collection in this postmenopausal patient. Pelvic sonogram may yield further information. 3. Chronic findings including colonic diverticulosis, splenomegaly, arteriosclerotic disease, chronic bony findings, and old granulomatous disease.
== END 2024-01-26 11:45 | disposition home or self-care (01) ==
LOC: SDC 05:55
PROVIDERS: ATTEND Family Medicine
DX: Z09 Encounter for follow-up examination after completed treatment for conditions other than malignant neoplasm (principal); Z86.010 Personal history of colon polyps; D64.9 Anemia, unspecified; K29.70 Gastritis, unspecified, without bleeding; K31.7 Polyp of stomach and duodenum; C18.4 Malignant neoplasm of transverse colon; D12.5 Benign neoplasm of sigmoid colon; E11.9 Type 2 diabetes mellitus without complications
CPT/HCPCS: 36415; 74178; 80053; 82947; 85027; 88305; 93005; 99100; J2704

== ENCOUNTER 2024-02-13 08:07 | Inpatient (IN) | payer MEDICARE, OTHER ==
[2024-02-13] MEDS ORDERED: MEFOXIN 2 GM PREMIX** 2 GM/50 ML ML IV ONE (08:15)
[2024-02-13] MEDS ORDERED: TYLENOL EXTRA STRENGTH 500 MG ONE ×2 (08:16→08:20)
[2024-02-13] MEDS ORDERED: celeBREX 100 MG ONE (08:16)
[2024-02-13] MEDS ORDERED: Lactated Ringers 1,000 ML IV ONE (08:16)
[2024-02-13] MEDS ORDERED: Decadron 4 MG ONE (08:16)
[2024-02-13] MEDS: Decadron 4 MG PO ONE (08:19)
[2024-02-13] MEDS: celeBREX 100 MG PO ONE (08:20)
[2024-02-13] MEDS: TYLENOL EXTRA STRENGTH 500 MG PO ONE (08:20)
[2024-02-13] MEDS: ENTEREG 12 MG PO ONE (08:20)
[2024-02-13] MEDS: Lactated Ringers 1,000 ML IV SCH (08:20)
[2024-02-13] MEDS: MEFOXIN 2 GM PREMIX** 2 GM/50 ML ML IV SCH (08:24)
[2024-02-13] MEDS ORDERED: Lactated Ringers 1,000 ML IV SCH (08:30)
[2024-02-13 09:38] LABS: ABO TYPING O; Antibody Screen NEGATIVE (NEGATIVE); RH TYPING NEGATIVE
[2024-02-13] MEDS ORDERED: Sodium Chloride 0.9% 1000 ML 2,000 ML ONE (09:52)
[2024-02-13] MEDS ORDERED: SUBLIMAZE 100 MCG/2 ML ONE ×3 (10:12→13:51)
[2024-02-13] MEDS ORDERED: Amidate 20 MG/10 ML IV ONE (10:13)
[2024-02-13] MEDS ORDERED: Quelicin Fliptop 200 MG/10 ML ONE (10:13)
[2024-02-13] MEDS ORDERED: ROCURONIUM BROMIDE IV ONE ×2 (10:16→11:53)
[2024-02-13] MEDS ORDERED: Versed 2 MG/2 ML Injection ONE (10:34)
[2024-02-13] MEDS ORDERED: AlbuRx 25% 50ML VIAL*** 100 ML IV ONE (10:57)
[2024-02-13 11:05] LABS: A-aADO2 28; ABG HEMOGLOBIN 10.9; ARTERIAL BLD GAS O2 SATURATION 96.5 % (95-100); ARTERIAL BLOOD GAS BASE EXCESS 2.9 (-2.0-2.0); ARTERIAL BLOOD GAS FIO2 21 %; ARTERIAL BLOOD GAS PCO2 39 mmHg (35-45); ARTERIAL BLOOD GAS PO2 73 mmHg (75-100); ARTERIAL BLOOD GAS pH 7.45 (7.35-7.45); CARBOXYHEMOGLOBIN 0.4 % THgb (0.0-6.9); HCO3- 27.1 (22-28); Methhemoglobin 0.1 % (1.4-1.5); paO2 pAO1 0.72
[2024-02-13 11:06] LABS: ABG POTASSIUM 2.7 (3.5-5.1); ABG SITE LINE
[2024-02-13] MEDS ORDERED: Xylocaine-Mpf 2% 5 Ml Vial ONE (11:16)
[2024-02-13] MEDS ORDERED: Sodium Chloride 0.9% 500 ML 500 ML IV ONE (11:22)
[2024-02-13 11:46] LABS: A-aADO2 -102; ABG HEMOGLOBIN 10.2; ARTERIAL BLD GAS O2 SATURATION 98.4 % (95-100); ARTERIAL BLOOD GAS BASE EXCESS -0.3 (-2.0-2.0); ARTERIAL BLOOD GAS FIO2 21 %; ARTERIAL BLOOD GAS PCO2 37 mmHg (35-45); ARTERIAL BLOOD GAS PO2 205 mmHg (75-100); ARTERIAL BLOOD GAS pH 7.42 (7.35-7.45); CARBOXYHEMOGLOBIN 0.2 % THgb (0.0-6.9); HGB O2 SAT 98.2 g/dF (94-100); Methhemoglobin 0.1 % (1.4-1.5); paO2 pAO1 1.99
[2024-02-13 11:47] LABS: ABG SITE LINE
[2024-02-13] MEDS ORDERED: Marcaine 0.5%/Epinephrine 10 ML ONE (11:55)
[2024-02-13] MEDS ORDERED: PHENYLEPHRINE HCL ONE (11:57)
[2024-02-13] MEDS ORDERED: BRIDION 200MG/2ML IV ONE (12:20)
[2024-02-13] MEDS ORDERED: Lasix 20 MG/2 ML ONE (13:07)
[2024-02-13 13:14] LABS: Appearance Clear (Clear); Bacteria None Seen /HPF (None Seen); Bilirubin Negative (Negative); Blood Negative (Negative); Epithelial Cells Few /HPF (None Seen); Glucose, Urine Negative (Negative); Ketones Trace (Negative); Leukocyte Esterase Negative (Negative); Nitrite Negative (Negative); Ph 5.5 (4.6-8.0); Protein,Urine Dip Trace (Negative); RBC 0-2 /HPF (0-5); Urobilinogen 0.2 mg/dL (0.2); WBC 0-2 /HPF (0-5)
[2024-02-13 14:04] LABS: Hematocrit 31.9 % (35-47); Hemoglobin 10.2 g/dL (12.0-16.0); Mean Cell Volume 86.4 fL (78-100); Mean Corpuscular Hemoglobin 27.6 pg (26-32); Mean Platelet Volume 9.8 fL (7.5-11.0); Platelet Count 326 x10^3/uL (150-450); Red Blood Count 3.69 x10^6/uL (4.1-5.4); Red Cell Distribution Width 18.8 % (11.5-14.0)
[2024-02-13 14:11] LABS: ALBUMIN 3.3 g/dL (3.5-5.0); BILIRUBIN,TOTAL 0.5 mg/dL (0.2-1.3); Calcium 7.3 mg/dL (8.4-10.2); Creatinine 1 1.33 mg/dL (0.52-1.04); EST GLOMERULAR FILTRATION RATE 40.2 ML/MIN; MAGNESIUM 1.5 mg/dL (1.6-2.3); Total Protein 5.8 g/dL (6.3-8.2)
[2024-02-13 14:19] LABS: Potassium 2.9 mmol/L (3.5-5.1)
[2024-02-13] MEDS ORDERED: TYLENOL 325 MG PO PRN (14:58)
[2024-02-13] MEDS ORDERED: FEVERALL 650 MG RC PRN (14:59)
[2024-02-13] MEDS ORDERED: Zofran 4 MG/2 ML VIAL IVIM PRN (15:06)
[2024-02-13] MEDS: D5W/0.45NS W/ 20mEq KCl 1000 ML 1,000 ML IV SCH (15:27)
[2024-02-13] MEDS: POTASSIUM CHLORIDE 20 mEq IN WATER 100ML 20 MEQ/100 ML BAG IV SCH (15:31)
[2024-02-13] MEDS: MEFOXIN 1 Gm/ D5W 50 Ml** 1 G/50 ML ML IV SCH (15:41)
[2024-02-13] MEDS: HUMALOG SQ PRN (19:58)
[2024-02-14] MEDS: MORPHINE SULFATE 2 MG INJ IV PRN (00:49)
[2024-02-14 04:33] LABS: Hematocrit 28.5 % (35-47); Hemoglobin 9.2 g/dL (12.0-16.0); Mean Cell Volume 84.8 fL (78-100); Mean Corpuscular Hemoglobin 27.4 pg (26-32); Mean Corpuscular Hgb Concent. 32.3 g/dL (32-36); Mean Platelet Volume 9.3 fL (7.5-11.0); Platelet Count 296 x10^3/uL (150-450); Red Blood Count 3.36 x10^6/uL (4.1-5.4); Red Cell Distribution Width 19.3 % (11.5-14.0); White Blood Count 9.4 x10^3/uL (4.0-10.5)
[2024-02-14 04:49] LABS: ANION GAP 10.3 MEQ/L (5-15); Calcium 7.5 mg/dL (8.4-10.2); Creatinine 1 1.41 mg/dL (0.52-1.04); EST GLOMERULAR FILTRATION RATE 37.5 ML/MIN; Potassium 3.4 mmol/L (3.5-5.1)
--- NOTE | 2024-02-14 07:57 | OP ---
SURGERY DATE/TIME: 02/13/2024 1034 PREOPERATIVE DIAGNOSIS: New colon cancer. POSTOPERATIVE DIAGNOSIS: New colon cancer. PROCEDURE: Complete left hemicolectomy this included mobilization of the stomach flexure. SURGEON: Johnathan Gan M.D. ANESTHESIA: General. QUANTATIVE BLOOD LOSS: One unit. COMPLICATIONS: None. CONDITION: Stable. INDICATION: The patient has had colon resection twice previously. She now presents with a third lesion. It is probably in the anastomotic area. It is somewhere on the left side of the body about 30 to 40 cm up from anus. DESCRIPTION OF PROCEDURE: She was taken to surgery. General anesthetic. Previous midline incision reopened. About one hour of adhesiolysis. After this was performed, the lesion was in the splenic flexure. The splenic flexure is mobilized. The colon was mobilized to left gutter. The omentum was left intact on the lesion. It was resected off the greater curvature of the stomach. At this time proximally and distally just to the right of the midline in the transverse colon down leaving about 2 inches of sigmoid in the pelvis. We were able to create an EEA [id number] anastomosis placing the anvil proximally and closing placing the gun distally firing, closing the otomy at the end with EEA stapling device. Left pair was left open. The small bowel was trapped with half from the upside and half was left on the inside. Residual minimal brought down the right side. Anastomosis was totally viable. No leakage occurred. The patient tolerated the procedure satisfactorily. Blood loss about one unit. Surgicel and foam was placed at the spleen. Fascia closed with loop 0 PDS and there certainly was some weakness. Subcutaneous secured with vanda. Sterile dressing applied. The patient tolerated the procedure satisfactorily.
[2024-02-14] MEDS: ENOXAPARIN SODIUM SQ SCH (10:21)
[2024-02-14] MEDS: LIPITOR 40MG PO SCH (10:21)
[2024-02-14] MEDS: PROTONIX 40 MG IV IV SCH (18:46)
[2024-02-15 05:04] LABS: Hematocrit 27.5 % (35-47); Hemoglobin 8.5 g/dL (12.0-16.0); Mean Cell Volume 87.6 fL (78-100); Mean Corpuscular Hemoglobin 27.1 pg (26-32); Mean Corpuscular Hgb Concent. 30.9 g/dL (32-36); Platelet Count 236 x10^3/uL (150-450); Red Blood Count 3.14 x10^6/uL (4.1-5.4); Red Cell Distribution Width 19.5 % (11.5-14.0); White Blood Count 6.7 x10^3/uL (4.0-10.5)
[2024-02-15 05:22] LABS: ALBUMIN 2.6 g/dL (3.5-5.0); ANION GAP 6.9 MEQ/L (5-15); BILIRUBIN,TOTAL 0.2 mg/dL (0.2-1.3); Calcium 7.2 mg/dL (8.4-10.2); Creatinine 1 1.32 mg/dL (0.52-1.04); EST GLOMERULAR FILTRATION RATE 40.6 ML/MIN; Potassium 3.2 mmol/L (3.5-5.1)
[2024-02-15] MEDS: NORCO 5/325 MG PO PRN (09:26)
[2024-02-15] MEDS: PROTONIX 40 MG IV IV SCH (09:27)
[2024-02-15] MEDS ORDERED: POTASSIUM CHLORIDE 20 mEq IN WATER 100ML 20 MEQ/100 ML BAG IV SCH (15:00)
--- NOTE | 2024-02-15 15:05 | PCM.NOTE ---
Date and Time: 02/15/24 1503 Objective Exam Wound Assessment: Skin/Wound Assessment Wound/Incision Assessment Start: 02/13/24 16:12 Text: Status: Active Freq: Q6H Protocol: Document 02/15/24 08:00 ELLIOT (Rec: 02/15/24 08:19 ELLIOT [id number]) Wound/Incision Assessment Anterior Medial Abdomen Wound Assessment Shift Assessment Wound Type Incision Dressing Status Dry & Intact Drainage Amount Minimal Drainage Description Brown Drainage Odor None/Absent Comment ISLAND DRESSING IN PLACE, SLIGHT OLD SHADOWING NOTED, ABDOMINAL BINDER ON Objective Data Vital Signs: Vital Signs - 24 hr Temp Pulse Resp BP Pulse Ox 02/15/24 11:39 97.5 F 82 16 116/57 96 02/15/24 11:22 90 L 02/15/24 09:35 94 L 02/15/24 09:30 88 L 02/15/24 07:29 98.3 F 98 H 16 134/62 92 L 02/15/24 04:47 97.5 F 86 20 92/54 94 L 02/15/24 04:00 97.9 F 96 H 20 138/68 95 02/14/24 23:44 97.9 F 96 H 20 138/68 95 02/14/24 19:40 98 02/14/24 19:18 97.8 F 111 H 18 135/63 96 02/14/24 16:05 94 L 02/14/24 16:00 98.1 F 87 16 121/60 88 L Pain Assessment - Last Documented Pain Intensity 0 Pain Scale Used 0-10 Pain Scale Intake and Output: Intake & Output 02/13/24 02/14/24 02/15/24 02/16/24 11:59 11:59 11:59 11:59 Intake Total 2000 2454 Output Total 5 1075 Balance 326 1380 Weight 73.6 kg 75.8 kg 75.8 kg Lab Results: Lab Results-Last 24 Hours 02/14/24 02/14/24 02/15/24 Range/Units 16:40 20:12 00:28 WBC (4.0-10.5) x10^3/uL RBC (4.1-5.4) x10^6/uL Hgb (12.0-16.0) g/dL Hct (35-47) % MCV (78-100) fL MCH (26-32) pg MCHC (32-36) g/dL RDW (11.5-14.0) % Plt Count (150-450) x10^3/uL MPV (7.5-11.0) fL Sodium (135-145) mmol/L Potassium (3.5-5.1) mmol/L Chloride (98-107) mmol/L Carbon Dioxide (22-30) mmol/L Anion Gap (5-15) MEQ/L BUN (7-17) mg/dL Creatinine (0.52-1.04) mg/dL Estimated GFR ML/MIN Glucose (74-106) mg/dL POC Glucometer 176 H 150 H 197 H (74 to 106) mg/dL Calcium (8.4-10.2) mg/dL Total Bilirubin (0.2-1.3) mg/dL AST (14-36) U/L ALT (0-35) U/L Alkaline Phosphatase (38-126) U/L Serum Total Protein (6.3-8.2) g/dL Albumin (3.5-5.0) g/dL 02/15/24 02/15/24 02/15/24 Range/Units 04:38 04:40 04:40 WBC 6.7 (4.0-10.5) x10^3/uL RBC 3.14 L (4.1-5.4) x10^6/uL Hgb 8.5 L (12.0-16.0) g/dL Hct 27.5 L (35-47) % MCV 87.6 (78-100) fL MCH 27.1 (26-32) pg MCHC 30.9 L (32-36) g/dL RDW 19.5 H (11.5-14.0) % Plt Count 236 (150-450) x10^3/uL MPV 10.0 (7.5-11.0) fL Sodium 137 (135-145) mmol/L Potassium 3.2 L (3.5-5.1) mmol/L Chloride 105 (98-107) mmol/L Carbon Dioxide 28 (22-30) mmol/L Anion Gap 6.9 (5-15) MEQ/L BUN 16 (7-17) mg/dL Creatinine 1.32 H (0.52-1.04) mg/dL Estimated GFR 40.6 ML/MIN Glucose 135 H (74-106) mg/dL POC Glucometer 124 H (74 to 106) mg/dL Calcium 7.2 L (8.4-10.2) mg/dL Total Bilirubin 0.20 (0.2-1.3) mg/dL AST 13 L (14-36) U/L ALT 11 (0-35) U/L Alkaline Phosphatase 85 (38-126) U/L Serum Total Protein 5.0 L (6.3-8.2) g/dL Albumin 2.6 L (3.5-5.0) g/dL 02/15/24 02/15/24 Range/Units 07:49 11:27 WBC (4.0-10.5) x10^3/uL RBC (4.1-5.4) x10^6/uL Hgb (12.0-16.0) g/dL Hct (35-47) % MCV (78-100) fL MCH (26-32) pg MCHC (32-36) g/dL RDW (11.5-14.0) % Plt Count (150-450) x10^3/uL MPV (7.5-11.0) fL Sodium (135-145) mmol/L Potassium (3.5-5.1) mmol/L Chloride (98-107) mmol/L Carbon Dioxide (22-30) mmol/L Anion Gap (5-15) MEQ/L BUN (7-17) mg/dL Creatinine (0.52-1.04) mg/dL Estimated GFR ML/MIN Glucose (74-106) mg/dL POC Glucometer 167 H 173 H (74 to 106) mg/dL Calcium (8.4-10.2) mg/dL Total Bilirubin (0.2-1.3) mg/dL AST (14-36) U/L ALT (0-35) U/L Alkaline Phosphatase (38-126) U/L Serum Total Protein (6.3-8.2) g/dL Albumin (3.5-5.0) g/dL Multi-Disciplinary Progress Notes: Multi-Disciplinary Progress Notes 02/15/24 09:34 Case Management Note by Lora Madrigal S/W PATIENT- NO CHANGE IN DC PLANS AT THIS TIME, SHE CONTINUES TO PLAN TO DC HOME TO HER PLF Initialized on 02/15/24 09:34 - END OF NOTE Assessment/Plan (1) History of partial colectomy Current Visit: Yes Status: Acute Assessment & Plan: S: no acute issues. getting up with assistance pain ok. no n/v. no flatus no bm. o nad nonlabord rpes snd, soft, dressing clean attp uo marginal cr 1.3 k low a/p; low k replace k. await return of bowel function trial ng clamp today. leave blake today with the marginal urine output. Code(s): Z90.49 - ACQUIRED ABSENCE OF OTHER SPECIFIED PARTS OF DIGESTIVE TRACT
[2024-02-15] MEDS: Potassium Chloride 40 MEQ/20 ML VIAL 40 MEQ, XYLOCAINE 1% HCL 20 ML MDV*** 2 ML in Sodi... IV ONE (15:39)
[2024-02-16 05:00] LABS: Hematocrit 29.3 % (35-47); Mean Cell Volume 89.1 fL (78-100); Mean Corpuscular Hemoglobin 27.4 pg (26-32); Mean Corpuscular Hgb Concent. 30.7 g/dL (32-36); Mean Platelet Volume 9.9 fL (7.5-11.0); Platelet Count 226 x10^3/uL (150-450); Red Blood Count 3.29 x10^6/uL (4.1-5.4); Red Cell Distribution Width 18.8 % (11.5-14.0); White Blood Count 5.1 x10^3/uL (4.0-10.5)
[2024-02-16 05:17] LABS: ALBUMIN 2.6 g/dL (3.5-5.0); ANION GAP 5.4 MEQ/L (5-15); BILIRUBIN,TOTAL 0.4 mg/dL (0.2-1.3); Calcium 7.5 mg/dL (8.4-10.2); Creatinine 1 1.33 mg/dL (0.52-1.04); EST GLOMERULAR FILTRATION RATE 40.2 ML/MIN
[2024-02-17 06:25] LABS: Hematocrit 31.7 % (35-47); Hemoglobin 9.7 g/dL (12.0-16.0); Mean Cell Volume 88.8 fL (78-100); Mean Corpuscular Hemoglobin 27.2 pg (26-32); Mean Corpuscular Hgb Concent. 30.6 g/dL (32-36); Mean Platelet Volume 10.2 fL (7.5-11.0); Platelet Count 247 x10^3/uL (150-450); Red Blood Count 3.57 x10^6/uL (4.1-5.4); Red Cell Distribution Width 18.3 % (11.5-14.0); White Blood Count 5.7 x10^3/uL (4.0-10.5)
[2024-02-17 06:37] LABS: ANION GAP 7.4 MEQ/L (5-15); BILIRUBIN,TOTAL 0.4 mg/dL (0.2-1.3); Calcium 7.9 mg/dL (8.4-10.2); Creatinine 1 1.25 mg/dL (0.52-1.04); EST GLOMERULAR FILTRATION RATE 43.3 ML/MIN; Potassium 3.4 mmol/L (3.5-5.1); Total Protein 5.5 g/dL (6.3-8.2)
[2024-02-17] MEDS: Klor Con PO ONE (06:56)
[2024-02-17 11:36] VITALS: BP 175/74; PULSE 78; RESP 16; TEMP 98.2; O2SAT 97
--- NOTE | 2024-04-08 12:55 | DS ---
ADMISSION DIAGNOSIS: Colon cancer. DISCHARGE DIAGNOSIS: Colon cancer. PROCEDURE: Left hemicolectomy. HOSPITAL COURSE: The patient presented with a biopsy proven colon cancer. Taken to surgery under general anesthetic. Left colectomy performed. Postoperatively resumed p.o. intake, ambulation, bowel function. The incision was healing well and was able to be discharged. She is scheduled to return to the office for follow up care, given routine instructions. Medications per the nursing discharge sheet. Pathology per the pathology sheet.
== END 2024-02-17 13:25 | disposition home or self-care (01) | DRG 331 ==
LOC: MED SURG 08:07 → ICU 08:07 → UNDOADMIN 08:07 → INTOOBSV 08:07 → OBSVTOIN 08:07 → ICU 08:08 → MED SURG 08:08 → EDSTATUS 11:11 → MED SURG 02-14 14:54
PROVIDERS: ADMIT Surgery; ATTEND Surgery
PROC: 0DTG0ZZ Resection of Left Large Intestine, Open Approach (ICD-10-PCS; principal; 2024-02-13)
DX: C18.9 Malignant neoplasm of colon, unspecified (principal); I10 Essential (primary) hypertension; E11.9 Type 2 diabetes mellitus without complications; I25.2 Old myocardial infarction; Z90.49 Acquired absence of other specified parts of digestive tract; Z79.899 Other long term (current) drug therapy
CPT/HCPCS: 36415; 36600; 36620; 64488; 76937; 76942; 80048; 80053; 81001; 82375; 82803; 82947; 83735; 83880; 84132; 84134; 85027; 86850; 86900; 86901; 87086; 88309; 88341; 88342; 94762; 99100; J0330; J0694; J1650; J1817; J1940; J2250; J2270; J2371; J3010; J3480; L0625; P9047; 97110-GP; A9270-GY